=== PATIENT | female | born 1990 | race Caucasian/White ===

== ENCOUNTER 2019-11-09 12:29 | Observation (INO) | payer OTHER, MEDICAID, SELFPAY ==
--- NOTE | 2019-11-09 12:29 | OBADM ---
This patient, Elizabeth Hurtado, admitted to the OB room OB Post 112 for observation. Patient/family oriented to hospital policies and general routines including ID bracelet, bed and alarms, visiting hours, pain management, procedures, bathroom and other care routines, personal items, smoking policy, room service/diet, and visiting hours. Patient/Family are encouraged to report perceived risks to care and to ask questions if they do not understand what they are told or what they should do.
[2019-11-09 13:15] VITALS: BP 136/88; PULSE 87; BMI 39.8
[2019-11-09 13:30] VITALS: BP 130/81; PULSE 85
[2019-11-09 13:45] VITALS: BP 127/94; PULSE 85
[2019-11-09 13:48] LABS: Add Urine Microscopic? YES; Appearance Urine Cloudy (Clear); Bacteria Urine 2+ /hpf; Bilirubin Urine Negative (Negative); Blood Urine Negative (Negative); Color Urine Yellow (Yellow); Glucose Urine UA Negative (Negative); Ketones Urine Trace mg/dL (Negative); Leukocyte Esterase Ur 2+ LEU/UL (NEGATIVE); Mucus Urine Few /lpf; Nitrate Urine Negative (Negative); Protein Urine 1+ mg/dL (Negative); Specific Grav Ur 1.017 (1.001-1.035); Squamous Epithelial Cell Urine Many /hpf (Few); WBC Urine 16-20 /hpf (0-3)
[2019-11-09 14:00] VITALS: BP 123/83; PULSE 85
[2019-11-09 14:15] VITALS: BP 120/79; PULSE 83
--- NOTE | 2019-11-09 17:01 | PC.NURSE ---
SVE DONE BEFORE DISCHARGE WAS 1/THICK/HIGH AT 1500
--- NOTE | 2019-12-08 20:14 | PM.OBTRLD ---
OB - Triage/Final Diagnosis Visit Information Date of evaluation: 11/09/19 Evaluation Laboratory results: Laboratory Tests 11/09/19 13:36 Urine Color Yellow Urine Appearance Cloudy H Urine pH 6.0 Ur Specific [place] 1.017 Urine Protein 1+ H Urine Glucose (UA) Negative Urine Ketones Trace Ur Blood (Man) Negative Urine Nitrate Negative Urine Bilirubin Negative Urine Urobilinogen 2.0 H Ur Leukocyte Esterase 2+ H Urine RBC 11-20 H Urine WBC 16-20 H Ur Squamous Epith Cells Many H Urine Bacteria 2+ H Urine Mucus Few H Final Diagnosis (1) False labor: Code(s): O47.9 - False labor, unspecified Status: Acute
--- NOTE | 2019-12-08 20:54 | PM.OBDSVD ---
DS: Diagnosis Discharge Diagnosis (1) labor: Code(s): O60.00 - labor without delivery, unspecified trimester Status: Acute OB - DS: Summary OB Procedures : PTL Mgmt OB Procedures Intrapartum: Other ( no delivery secondary to treatment of pre term labor) OB Procedures: : None Status at Discharge Functional status at discharge: independent ambulation Time Spent with Patient Time attestation: Total time spent providing and/or coordinating discharge services: Time spent: Less than 30 minutes Discharge Plan Discharge Attending physician on discharge: Gordy Alanis Discharging Clinician: Gordy Alanis Patient Disposition: Home, Self-Care Activity: may shower, as tolerated and pelvic rest Diet: regular Stand Alone Forms: General Discharge Information Follow-up/Referrals: Gordy Alanis MD [Physician] - Discharge Medications: No Action ibuprofen 600 mg Tablet 600 mg PO Q6H PRN (Reason: Cramping) Qty: 60 RF: 0 Date of admission: 11/09/19 12:29 Primary Care Provider: UNKNOWN,DOCTOR Admitting Provider: Gordy Alanis Discharge Date/Time: 11/09/19 15:50 Attending physician on admission: Gordy Alanis
== END 2019-11-09 15:50 | disposition home or self-care (01) ==
PROVIDERS: Admitting Provider Obstetrics & Gynecology; Visit Provider Obstetrics & Gynecology
DX: O60.00 Preterm labor without delivery, unspecified trimester (principal); Z3A.00 Weeks of gestation of pregnancy not specified; Z79.899 Other long term (current) drug therapy
CPT/HCPCS: 81001; 87086; 87088; G0378; G0379

== ENCOUNTER 2019-11-13 11:41 | Inpatient (IN) | payer OTHER, MEDICAID, SELFPAY ==
[2019-11-13] VITALS (16 sets, daily range): BP systolic 125–143; BP diastolic 76–89; PULSE 91–111; RESP 14–16; TEMP 36.8–36.9; O2SAT 100; BMI 39.8
--- NOTE | 2019-11-13 11:41 | OBADM ---
This patient, Elizabeth Hurtado, admitted to the OB room OB Post 113 for observation. Patient/family oriented to hospital policies and general routines including ID bracelet, bed and alarms, visiting hours, pain management, procedures, bathroom and other care routines, personal items, smoking policy, room service/diet, and visiting hours. Patient/Family are encouraged to report perceived risks to care and to ask questions if they do not understand what they are told or what they should do.
[2019-11-13] MEDS: TERBUTALINE SULFATE 1 MG/ML VIAL 0.25 MG SUB-Q (13:40)
[2019-11-13 13:52] LABS: Fetal Fibronectin Negative
[2019-11-13] MEDS: LACTATED RINGERS 1,000 ML 75 ML IV CONT (14:06)
[2019-11-13] MEDS: MAGNESIUM SULF 4 GM/WATER100ML 4 GM/100 ML BAG IVPB (14:07)
[2019-11-13] MEDS: BETAMETHASONE SOD PHOS/ACETATE 30 MG/5 ML VIAL 12 MG IM (14:08)
[2019-11-13] MEDS: MAGNESIUM SULF 20GM/WATER500ML 500 ML 50 MG IV CONT (14:43)
--- NOTE | 2019-11-13 18:10 | PC.NURSE ---
Called Dr. Joe with pt update. Informed of BPs. May D/C home with symptoms to call for. Call with BP >160/100.
--- NOTE | 2019-11-13 18:25 | PC.NURSE ---
Pt given D/C instructions to call for diastolic greater than 160 or systolic greater than 100, or any pre eclampsia symptoms noted on handout. Pt instructed to take Labetalol q 8hrs and times given when to take. Instructed to take Procardia at home in AM. Pt understands and agrees to instructions.
[2019-11-13] MEDS: NORTRIPTYLINE HCL 25 MG CAPSULE 50 MG PO (21:07)
[2019-11-13] MEDS: INSULIN HUMAN NPH (*BKC) 100 UNITS/ML 15 UNITS SUB-Q (21:07)
[2019-11-13] MEDS: NITROFURANTOIN MONOHYD MACROCR 100 MG CAP PO (21:07)
[2019-11-13 21:16] LABS: Glucose Point of Care 239 (65-105)
[2019-11-14] VITALS (8 sets, daily range): BP systolic 124–144; BP diastolic 67–76; PULSE 96–108; RESP 15–18; TEMP 36.8–37.1; O2SAT 96–100
[2019-11-14] MEDS: MAGNESIUM SULF 20GM/WATER500ML 500 ML 50 MG IV CONT ×3 (01:30→20:45)
[2019-11-14] MEDS: LACTATED RINGERS 1,000 ML 75 ML IV CONT ×2 (02:47→15:54)
[2019-11-14] MEDS: INSULIN HUMAN NPH (*BKC) 100 UNITS/ML 13 UNITS SUB-Q (08:01)
--- NOTE | 2019-11-14 08:02 | PM.IMHP ---
H&P: HPI History of Present Illness Chief complaint: contractions Narrative: Elizabeth Hurtado is a 29 year old female , who presented to LD after NST in office showed contractions every 3 minutes.on admission pt found to be dilated 3.5 cm, Dr. Alanis ordered magnesium sulfate and pt started betamethasone for lung development. Currently pt has no complaints except for left pedal edema and mild headache, declines tylenol at this time. Denies contractions and status reassuring. is also complicated by GDM-A2, Circumvallate placenta and marginal cord insertion, and hx of 1 delivery followed by successful vaginal .Curerntly fetus measuring in the 95th percentile weight. Review of Systems Review of Systems: All systems reviewed & are unremarkable except as noted in HPI and below Cardiovascular: Cardiovascular: Reports as per HPI Respiratory: Respiratory: Reports as per HPI and Reports no additional respiratory complaints Gastrointestinal: Gastrointestinal: Reports as per HPI Musculoskeletal: Comments: left pedal edema Neurologic: Reports headache(s) Comments: mild headache Psychiatric: Psychiatric: Reports as per HPI Meds Home Medications and Allergies Home Medications Medication Instructions Recorded Confirmed Type nitrofurantoin monohyd/m-cryst 100 mg PO Q12HR #14 cap 11/09/19 11/13/19 Rx [Macrobid] insulin NPH isoph U-100 human 13 unit SUBCUT QAM 11/13/19 11/13/19 History [Humulin N NPH U-100 Insulin] insulin NPH isoph U-100 human 15 unit SUBCUT HS 11/13/19 11/13/19 History [Humulin N NPH U-100 Insulin] nortriptyline 50 mg PO HS 11/13/19 11/13/19 History Allergies Allergy/AdvReac Type Severity Reaction Status Date / Time No Known Allergies Allergy Mild Unverified 07/21/11 14:19 Vital Signs Vital Signs - 24 hr 11/13/19 12:31 11/13/19 12:45 11/13/19 13:00 Temperature Pulse Rate 99 94 99 Respiratory Rate Blood Pressure 137/81 132/85 133/89 Pulse Oximetry 11/13/19 13:16 11/13/19 13:30 11/13/19 13:46 Temperature Pulse Rate 97 103 H 97 Respiratory Rate 16 Blood Pressure 126/76 140/84 134/85 Pulse Oximetry 11/13/19 14:00 11/13/19 14:16 11/13/19 14:30 Temperature Pulse Rate 101 H 102 H 103 H Respiratory Rate Blood Pressure 140/84 125/80 137/85 Pulse Oximetry 11/13/19 14:46 11/13/19 15:00 11/13/19 16:00 Temperature 36.8 C Pulse Rate 105 H 106 H Respiratory Rate Blood Pressure 139/82 136/88 Pulse Oximetry 11/13/19 18:28 11/13/19 18:52 11/13/19 23:06 Temperature 36.9 C Pulse Rate 111 H 111 H 106 H Respiratory Rate 14 Blood Pressure 141/83 H 141/83 H 143/78 H Pulse Oximetry 100 11/13/19 23:09 11/14/19 02:44 11/14/19 02:50 Temperature 36.8 C 36.9 C Pulse Rate 106 H 101 H 101 H Respiratory Rate 14 15 Blood Pressure 143/79 H 132/73 132/73 Pulse Oximetry 100 100 11/14/19 07:09 Temperature 36.8 C Pulse Rate 96 Respiratory Rate Blood Pressure 135/75 Pulse Oximetry Exam Const: General: no acute distress Eyes: General: appearance normal, both eyes and all related structures Cardio: Rate: regular rate GI: GI Palp: Yes Soft to palpation : External Female Exam: normal external appearance Skin: General skin exam: normal color Neuro: Speech: normal speech Extrem: General: edema (trace right edema, 1+ left pedal edema) Psych: Mental Status: mental status grossly normal Affect: normal affect Assessment and Plan Additional Plan 1. labor -magnesium sulfate x 48 hrs -toco quiet -betamethasone 2. GDM-A2 -monitor blood glucose -insulin as ordered -diabetic diet 3. status reassuring -growth 95% -NST reactive Plan to continue monitoring for labor, magnesium sulfate x48 hours, steroids for lung maturity. plan managed with Dr. Alanis
[2019-11-14 08:07] LABS: Glucose Point of Care 113 (65-105)
[2019-11-14] MEDS: NITROFURANTOIN MONOHYD MACROCR 100 MG CAP PO ×2 (10:01→20:46)
[2019-11-14 11:09] LABS: Glucose Point of Care 108 (65-105)
[2019-11-14] MEDS: BETAMETHASONE SOD PHOS/ACETATE 30 MG/5 ML VIAL 12 MG IM (14:11)
[2019-11-14] MEDS: ACETAMINOPHEN 500 MG TABLET 1000 MG PO (14:44)
[2019-11-14 16:00] LABS: Glucose Point of Care 129 (65-105)
[2019-11-14 20:03] LABS: Glucose Point of Care 179 (65-105)
[2019-11-14] MEDS: INSULIN HUMAN NPH (*BKC) 100 UNITS/ML 15 UNITS SUB-Q (20:48)
[2019-11-15] VITALS (9 sets, daily range): BP systolic 130–147; BP diastolic 57–78; PULSE 83–105; RESP 18; TEMP 36.7–37.2; O2SAT 97–98
[2019-11-15] MEDS: MAGNESIUM SULF 20GM/WATER500ML 500 ML 50 MG IV CONT (07:06)
[2019-11-15] MEDS: LACTATED RINGERS 1,000 ML 75 ML IV CONT (07:07)
--- NOTE | 2019-11-15 08:18 | PM.OBPNVD ---
OB - PN: Subj Subjective Date/time seen: 11/15/19 08:18 no complaints, good movement, no vaginal bleeding, no contractions OB - PN: Obj Data Labs Labs: Laboratory Results - last 24 hr 11/14/19 11/14/19 11/14/19 11:05 15:56 19:53 POC Capillary Glucose 108 129 H 179 H OB - PN A/P Assessment and Plan (1) labor: Code(s): O60.00 - labor without delivery, unspecified trimester Status: Acute Assessment and Plan: stable, to d/c mag today, to start procardia, cont. obs Time Spent With Patient Time: Total time spent is greater than 50% in coordination of care (as documented) at patient's floor/unit and/or counseling patient: Exam Const: General: comfortable, no acute distress and alert Resp: Effort & Inspection: normal respiratory effort Auscultation: no crackles, no rales and no rhonchi Cardio: Rate: regular rate Heart sounds: no click, no murmurs and no rubs GI: Inspection: non-distended GI Palp: No Tenderness to palpation present (GI) Auscultation: normal bowel sounds Other: Incision - CDI Extrem: General: normal to inspection, no pedal edema and no calf tenderness
[2019-11-15] MEDS: NITROFURANTOIN MONOHYD MACROCR 100 MG CAP PO (08:19)
[2019-11-15] MEDS: INSULIN HUMAN NPH (*BKC) 100 UNITS/ML 13 UNITS SUB-Q (08:20)
[2019-11-15 08:24] LABS: Glucose Point of Care 110 (65-105)
[2019-11-15] MEDS: NIFEdipine 30 MG TAB.ER.24 PO (12:22)
[2019-11-15 13:13] LABS: Glucose Point of Care 136 (65-105)
[2019-11-15 19:52] LABS: Glucose Point of Care 149 (65-105)
--- NOTE | 2019-12-10 08:04 | P.DS_ITS ---
DS: Diagnosis Admitting Diagnosis Admitting Diagnosis: labor without delivery, unspecified trimester Discharge Diagnosis (1) contractions: Code(s): O47.9 - False labor, unspecified Status: Acute OB - DS: Summary OB Procedures : PTL Mgmt OB Procedures Intrapartum: Other (no delivery - treament for PTL) OB Procedures: : None Status at Discharge Functional status at discharge: independent ambulation Time Spent with Patient Time attestation: Total time spent providing and/or coordinating discharge services: Discharge Plan Discharge Consulting providers: Nava Lagunas Discharging Clinician: Gordy Alanis Patient Disposition: Home, Self-Care Activity: as tolerated Diet: gestational diabetic Discharge Instructions: OB ANTEPARTUM DISCHARGE INSTRUCTIONS This information is given to help you properly care for yourself at home after your discharge from the hospital. Follow these instructions until your doctor tells you otherwise. DIET: Eat Three Well Balanced Meals per Day Drink at Least Eight 8-Ounce Glasses of Caffeine-Free Beverages Daily Additional Diet Instructions: ACTIVITY: As Tolerated Additional Activity Instructions: RETURN TO LABOR AND DELIVERY IF YOU HAVE: Any Change In Baby's Normal Movement Pattern Any Leakage of Fluid More than 6 Contractions in an Hour Vaginal Bleeding Additional Reasons to Return to Labor and Delivery: Contractions may feel like abdominal pain, tightening, cramping, pressure, back ache, or thigh ache. 24 Hour Urine Collection: Continue 24 hour urine collection until at . When collection is completed, return specimen to the [facility]. See handout for 24 hour urine collection. OTHER INSTRUCTIONS: FOLLOW-UP CARE: Call Office and Make Appointment To see in/on Valuables released to patient or family? N/A Medications from home returned to patient? N/A I Acknowledge Receipt of and Understand the Above Instructions IF YOU HAVE ANY QUESTIONS REGARDING THESE INSTRUCTIONS, PLEASE CALL [phone]. IF PROBLEMS ARISE, CALL YOUR PROVIDER. IF EMERGENCY CARE IS NEEDED, [facility]S EMERGENCY ROOM IS AVAILABLE 24 HOURS A DAY. Stand Alone Forms: General Discharge Information Follow-up/Referrals: Gordy Alanis MD [Physician] - Discharge Medications: No Action ibuprofen 600 mg Tablet 600 mg PO Q6H PRN (Reason: Cramping) Qty: 60 RF: 0 Date of admission: 11/14/19 11:26 Primary Care Provider: UNKNOWN,DOCTOR Admitting Provider: Gordy Alanis Discharge Date/Time: 11/15/19 19:50 Attending physician on admission: Gordy Alanis
== END 2019-11-15 19:50 | disposition home or self-care (01) | DRG 833 ==
LOC: ANHOBPP 11-14 12:03 → ANHLDR 11-15 07:32
PROVIDERS: Advanced Practice Midwife; Admitting Provider Obstetrics & Gynecology; Visit Provider Obstetrics & Gynecology
DX: O60.00 Preterm labor without delivery, unspecified trimester (principal); O24.419 Gestational diabetes mellitus in pregnancy, unspecified control; O69.89X0 Labor and delivery complicated by other cord complications, not applicable or unspecified; O43.113 Circumvallate placenta, third trimester; O34.211 Maternal care for low transverse scar from previous cesarean delivery
CPT/HCPCS: 82731; A9270; J0702; J1815; J3105; J3475; J7120

== ENCOUNTER 2019-11-17 08:53 | Inpatient (IN) | payer OTHER, MEDICAID, SELFPAY ==
[2019-11-17] VITALS (21 sets, daily range): BP systolic 123–179; BP diastolic 72–118; PULSE 64–125; RESP 16–18; TEMP 36.4–37; O2SAT 98–99; BMI 39.7
[2019-11-17] MEDS: LACTATED RINGERS 1,000 ML 999 ML IV CONT (09:15)
[2019-11-17 09:22] LABS: Basophils Percent Auto 0.3 % (0.2-1.2); Eosinophils Percent Auto 0.3 % (0-4.4); Hematocrit 30.9 % (37.0-47.0); Hemoglobin 9.9 g/dL (12.0-15.0); Immature Granulocyte Absolute 0.14 K/mm3 (0.00-0.031); Lymphocytes Absolute Auto 1.97 K/mm3 (0.9-3.2); Lymphocytes Percent Auto 14.1 % (18.3-44.2); Mean Corpuscular Hemoglobin 25.4 pg (26-34); Mean Corpuscular Volume 79.4 fl (80-100); Mean Platelet Volume 12.8 fl (7.4-10.4); Monocytes Absolute Auto 0.9 K/mm3 (0.1-0.6); Monocytes Percent Auto 6.7 % (2.6-8.5); Neutrophils Absolute Auto 10.8 K/mm3 (1.3-6.7); Neutrophils Percent Auto 77.6 % (45.5-73.1); Nucleated Red Blood Cells Absolute Auto 0.1 K/mm3 (0.0-0.012); Platelet Count Result 184 k/mm3 (150-375); Red Blood Count 3.89 M/mm3 (4.2-5.4)
[2019-11-17] MEDS: OXYTOCIN 10 UNITS/ML VIAL 20 UNITS (09:43)
[2019-11-17] MEDS: KETOROLAC 30 MG/ML VIAL (*BKC) (09:45)
--- NOTE | 2019-11-17 10:05 | WPDOBADMIT ---
Obstetrics - Admit Note Admission Note: record reviewed. No pertinent additions to the history and/or any subsequent changes in the physical findings that are not consistent with the expected course of the were found. Additions to the history and/or subsequent changes in the physical findings follow. at 34+2 came in with c/o contractions and leaking green fluid since 829. She was just discharged from hospital 2-3 days ago for labor and received steroids earlier this week. 9 cm dilated. Grossly ruptured membranes with meconium. She has h/o C/S with first, then successful with baby weighing 8# 6oz. She had been advised for repeat C/S but given advanced cervical dilation (anterior lip at 0 station when I arrived) and baby likely baby smaller than the she had, we agreed to proveed with attempt at . She gave verbal consent. h/o GDM on insulin. Blood sugar 95 just before delivery.
--- NOTE | 2019-11-17 10:11 | P.PCNOB_ITS ---
OB - Delivery Note Procedure Delivery date: 11/17/19 Procedure: events: Labor < 37 Weeks, Previous , Gestational Diabetes and Meconium Stained Fluid Intrapartal events: Precipitous Labor < 3 hours and Diabetes Delivery monitor: external FHT and external uterine Route of delivery: Laceration description: Perineal - 2nd Degree Delivery repair: vicryl (3-0) Specimen: Yes Estimated blood loss (mL): 245 Anesthesia type: Local Disposition: floor [place] Baby Date of : 11/17/19 Time of : 09:35 Weeks of gestation at delivery: 34 Infant gender: Male Weight (pounds): 7 Weight (ounces): 12 presentation: vertex position: Right Occiput Anterior Placenta delivery description: Spontaneous cord vessel description: Nuchal Cord score one minute: 6 score five minutes: 9
--- NOTE | 2019-11-17 10:58 | LDADM ---
This patient, Elizabeth Hurtado, was admitted to Labor/Delivery/Recovery 102 on 11/17/19 at 08:53. Plans for labor, pain management and were discussed with patient. Patient/family oriented to hospital policies and general routines including ID bracelet, bed and alarms, visiting hours, pain management, procedures, bathroom and other care routines, personal items, smoking policy, room service/diet and guest tray routines, security routines, and visiting hours. Patient/Family are encouraged to report perceived risks to care and to ask questions if they do not understand what they are told or what they should do. See OBIX for further documentation.
[2019-11-17 11:28] LABS: Glucose Point of Care 95 (65-105)
[2019-11-17 12:02] LABS: Alanine Aminotransferase 15 U/L (4-35); Albumin Level 2.5 g/dL (3.5-5.1); Alkaline Phosphatase 160 U/L (38-126); Aspartate Amino Transferase 32 U/L (14-36); Bilirubin,Total 0.3 mg/dL (0.2-1.3); Blood Urea Nitrogen 11 mg/dL (7-17); Calcium 7.8 mg/dL (8.4-10.2); Carbon Dioxide 18 mmol/L (22-30); Chloride 108 mmol/L (98-107); Estimated CRCL calculation 115 ml/min; Estimated Glomerular Filt Rate > 60; Glucose 109 mg/dL (65-105); Potassium 3.5 mmol/L (3.4-5.0); Sodium 135 mmol/L (137-145)
[2019-11-17] MEDS: BENZOCAINE 20% AER SPR (*SP) 56 GM CAN 1 SPRAY TOPICAL (13:51)
[2019-11-17] MEDS: WITCH HAZEL 40 PADS 1 PAD TOPICAL (13:51)
[2019-11-17] MEDS: DOCUSATE SODIUM 100 MG CAPSULE PO (16:48)
[2019-11-17] MEDS: LANOLIN (LANSINOH) 7.5 GM CREAM 1 APPLIC TOPICAL (16:49)
[2019-11-17] MEDS: POLYSACCHARIDE IRON COMPLEX 150 MG CAPSULE PO (16:49)
[2019-11-17] MEDS: IBUPROFEN 600 MG TABLET PO (16:49)
--- NOTE | 2019-11-17 17:21 | PC.NURSE ---
1332 Pt admitted to room 281 per wheelchair from labor and delivery after spontaneous vaginal delivery of viable male infant at [address] Whitfield. Mother is a ; FOB present. At this time baby is being stabilized for transfer to [facility] because of respiratory problems due to 34 2/7 weeks gestation and meconium delivery. 1600 Admission folder reviewed with mother.
--- NOTE | 2019-11-17 17:24 | PC.NURSE ---
1700 Mother expresses the desire to breast feed her baby; she reports that she did not breast feed her first 2 children. Mother set up with breast pump at this time; shown set up, reviewed care of equipment, and pumping schedule of q3h, during her awake hours. Mother comfortable with 24mm flanges at this time. Reviewed collection and storage of breast milk. She was attentive and voiced understanding of information shared.
[2019-11-18 03:30] VITALS: BP 151/89; PULSE 64
[2019-11-18] MEDS: IBUPROFEN 600 MG TABLET PO ×2 (03:37→10:16)
[2019-11-18 03:49] LABS: Hematocrit 28.7 % (37.0-47.0); Hemoglobin 9.2 g/dL (12.0-15.0)
--- NOTE | 2019-11-18 08:38 | PM.OBPNVD ---
OB - PN: Subj Subjective Date/time seen: 11/18/19 08:38 Patient comments: no complaints, pain well controlled and other (Lochia similar to menses) baby status: doing well (transferred to [place], on ventilator) OB - PN: Obj Data Labs CBC & Chem 7: 11/18/19 03:42 11/17/19 11:37 Labs: Laboratory Results - last 24 hr 11/17/19 11/17/19 11/17/19 09:13 09:13 09:28 WBC 14.0 H RBC 3.89 L Hgb 9.9 L Hct 30.9 L MCV 79.4 L MCH 25.4 L MCHC 32.0 RDW 15.0 H Plt Count 184 MPV 12.8 H Immature Gran % (Auto) 1.0 H Neut % (Auto) 77.6 H Lymph % (Auto) 14.1 L [place] % (Auto) 6.7 Eos % (Auto) 0.3 Baso % (Auto) 0.3 Lymph # (Auto) 1.97 [place] # (Auto) 0.9 H Eos # (Auto) 0.0 Baso # (Auto) 0.0 Abs Immat Gran (auto) 0.14 H Absolute Neuts (auto) 10.8 H Absolute Nucleated RBC 0.1 H Nucleated RBC % 1.0 H Sodium Potassium Chloride Carbon Dioxide BUN Creatinine Estim Creat Clear Calc Estimated GFR Glucose POC Capillary Glucose 95 Uric Acid Calcium Total Bilirubin AST ALT Alkaline Phosphatase Total Protein Albumin Blood Type A Positive Antibody Screen Negative 11/17/19 11/17/19 11/18/19 11:37 11:37 03:42 WBC RBC Hgb 9.2 L Hct 28.7 L MCV MCH MCHC RDW Plt Count MPV Immature Gran % (Auto) Neut % (Auto) Lymph % (Auto) [place] % (Auto) Eos % (Auto) Baso % (Auto) Lymph # (Auto) [place] # (Auto) Eos # (Auto) Baso # (Auto) Abs Immat Gran (auto) Absolute Neuts (auto) Absolute Nucleated RBC Nucleated RBC % Sodium 135 L Potassium 3.5 Chloride 108 H Carbon Dioxide 18 L BUN 11 Creatinine 0.70 Estim Creat Clear Calc 115 Estimated GFR > 60 Glucose 109 H POC Capillary Glucose Uric Acid 7.0 Calcium 7.8 L Total Bilirubin 0.3 AST 32 ALT 15 Alkaline Phosphatase 160 H Total Protein 5.0 L Albumin 2.5 L Blood Type Antibody Screen OB - PN A/P Plan day: 1 (s/p vaginal delivery, doing well) Plan: routine care and discharge home (Follow up in 4 weeks) Time Spent With Patient Time: Total time spent is greater than 50% in coordination of care (as documented) at patient's floor/unit and/or counseling patient: Time with patient: less than 15 minutes Exam Const: General: no acute distress GI: Inspection: other (Fundus firm and nontender at umbilicus) GI Palp: Yes Soft to palpation and No Tenderness to palpation present (GI) Extrem: General: no edema
--- NOTE | 2019-11-18 08:39 | PM.OBDSVD ---
DS: Diagnosis Discharge Diagnosis (1) labor in third trimester with delivery: Code(s): O60.14X0 - labor third trimester with delivery third trimester, not applicable or unspecified Status: Acute (2) Gestational diabetes: Code(s): O24.419 - Gestational diabetes mellitus in , unspecified control Status: Acute OB - DS: Summary OB Procedures : PTL Mgmt OB Procedures Intrapartum: OB Procedures: : None Peripartum Data Delivery Method: Natural Vaginal Laceration description: Perineal - 2nd Degree complications: none Status at Discharge Functional status at discharge: independent ambulation Overall status at discharge: patient is progressing back to baseline Time Spent with Patient Time attestation: Total time spent providing and/or coordinating discharge services: Time spent: Less than 30 minutes DS: Data Data Completed and Pending Labs on day of discharge: Labs from last 24 hours 11/18/19 11/17/19 11/17/19 03:42 11:37 11:37 WBC RBC Hgb 9.2 L Hct 28.7 L MCV MCH MCHC RDW Plt Count MPV Immature Gran % (Auto) Neut % (Auto) Lymph % (Auto) [place] % (Auto) Eos % (Auto) Baso % (Auto) Lymph # (Auto) [place] # (Auto) Eos # (Auto) Baso # (Auto) Abs Immat Gran (auto) Absolute Neuts (auto) Absolute Nucleated RBC Nucleated RBC % Sodium 135 L Potassium 3.5 Chloride 108 H Carbon Dioxide 18 L BUN 11 Creatinine 0.70 Estim Creat Clear Calc 115 Estimated GFR > 60 Glucose 109 H POC Capillary Glucose Uric Acid 7.0 Calcium 7.8 L Total Bilirubin 0.3 AST 32 ALT 15 Alkaline Phosphatase 160 H Total Protein 5.0 L Albumin 2.5 L RPR Blood Type Antibody Screen 11/17/19 11/17/19 11/17/19 09:28 09:13 09:13 WBC RBC Hgb Hct MCV MCH MCHC RDW Plt Count MPV Immature Gran % (Auto) Neut % (Auto) Lymph % (Auto) [place] % (Auto) Eos % (Auto) Baso % (Auto) Lymph # (Auto) [place] # (Auto) Eos # (Auto) Baso # (Auto) Abs Immat Gran (auto) Absolute Neuts (auto) Absolute Nucleated RBC Nucleated RBC % Sodium Potassium Chloride Carbon Dioxide BUN Creatinine Estim Creat Clear Calc Estimated GFR Glucose POC Capillary Glucose 95 Uric Acid Calcium Total Bilirubin AST ALT Alkaline Phosphatase Total Protein Albumin RPR Pending Blood Type A Positive Antibody Screen Negative 11/17/19 09:13 WBC 14.0 H RBC 3.89 L Hgb 9.9 L Hct 30.9 L MCV 79.4 L MCH 25.4 L MCHC 32.0 RDW 15.0 H Plt Count 184 MPV 12.8 H Immature Gran % (Auto) 1.0 H Neut % (Auto) 77.6 H Lymph % (Auto) 14.1 L [place] % (Auto) 6.7 Eos % (Auto) 0.3 Baso % (Auto) 0.3 Lymph # (Auto) 1.97 [place] # (Auto) 0.9 H Eos # (Auto) 0.0 Baso # (Auto) 0.0 Abs Immat Gran (auto) 0.14 H Absolute Neuts (auto) 10.8 H Absolute Nucleated RBC 0.1 H Nucleated RBC % 1.0 H Sodium Potassium Chloride Carbon Dioxide BUN Creatinine Estim Creat Clear Calc Estimated GFR Glucose POC Capillary Glucose Uric Acid Calcium Total Bilirubin AST ALT Alkaline Phosphatase Total Protein Albumin RPR Blood Type Antibody Screen Discharge Plan Discharge Attending physician on discharge: Jenny Whitfield Discharging Clinician: Jenny Whitfield Patient Disposition: Home, Self-Care Activity: may shower and pelvic rest Diet: regular Patient Instructions: Antibiotic Form Stand Alone Forms: General Discharge Information Follow-up/Referrals: Jenny Whitfield MD [Physician] - 4 Weeks Discharge Medications: New ibuprofen 600 mg Tablet 600 mg PO Q6H PRN (Reason: Cramping) Qty: 60 RF: 0 Discontinued Humulin N NPH U-100 Insulin 100 unit/mL suspen
[2019-11-18 09:00] VITALS: PULSE 64; RESP 16; O2SAT 99
[2019-11-18 10:00] VITALS: BP 137/80; PULSE 67; RESP 14; TEMP 36.6; O2SAT 100
[2019-11-18] MEDS: MULTIVIT/MIN/PREN/FOL AC/IRON TABLET 1 TAB PO (10:10)
[2019-11-18] MEDS: POLYSACCHARIDE IRON COMPLEX 150 MG CAPSULE PO (10:10)
[2019-11-18] MEDS: DOCUSATE SODIUM 100 MG CAPSULE PO (10:10)
[2019-11-19 10:31] LABS: Rapid Plasma Reagin Non-Reactive (NonReactive)
[2019-11-19 15:20] VITALS: BP 121/67; PULSE 73; RESP 18; TEMP 36.6
== END 2019-11-18 11:07 | disposition home or self-care (01) | DRG 805 ==
LOC: ANHLDR 14:44 → ANHOB2 15:15
PROVIDERS: Admitting Provider Obstetrics & Gynecology; Visit Provider Obstetrics & Gynecology
DX: O24.424 Gestational diabetes mellitus in childbirth, insulin controlled (principal); O60.14X0 Preterm labor third trimester with preterm delivery third trimester, not applicable or unspecified; Z37.0 Single live birth; Z3A.34 34 weeks gestation of pregnancy; O77.0 Labor and delivery complicated by meconium in amniotic fluid; O62.3 Precipitate labor; O70.1 Second degree perineal laceration during delivery; O34.219 Maternal care for unspecified type scar from previous cesarean delivery
CPT/HCPCS: 36415; 80053; 84550; 85014; 85018; 85025; 86592; 86850; 86900; 86901; 88307; A9270; J1885; J2590; J7120

== ENCOUNTER 2019-11-19 15:39 | Outpatient (CLI) | payer OTHER, MEDICAID, SELFPAY ==
[2019-11-19 16:08] LABS: Basophils Percent Auto 0.3 % (0.2-1.2); Eosinophils Absolute Auto 0.3 K/mm3 (0-0.3); Eosinophils Percent Auto 2.9 % (0-4.4); Hematocrit 28.5 % (37.0-47.0); Immature Granulocyte Absolute 0.07 K/mm3 (0.00-0.031); Immature Granulocyte Percent A 0.7 % (0-0.5); Lymphocytes Absolute Auto 2.65 K/mm3 (0.9-3.2); Lymphocytes Percent Auto 25.9 % (18.3-44.2); Mean Corpuscular HGB Conc 31.6 g/dl (32-36); Mean Corpuscular Hemoglobin 25.4 pg (26-34); Mean Corpuscular Volume 80.5 fl (80-100); Monocytes Absolute Auto 0.4 K/mm3 (0.1-0.6); Monocytes Percent Auto 4.3 % (2.6-8.5); Neutrophils Absolute Auto 6.8 K/mm3 (1.3-6.7); Neutrophils Percent Auto 65.9 % (45.5-73.1); Nucleated Red Blood Cells Perc 0.3 % (0.0-0.2); Platelet Count Result 175 k/mm3 (150-375); Red Blood Count 3.54 M/mm3 (4.2-5.4); Red Cell Distribution Width 15.2 % (11.5-14.5); White Blood Count 10.3 K/mm3 (4.5-10.0)
[2019-11-19 16:20] LABS: Alanine Aminotransferase 12 U/L (4-35); Albumin Level 2.5 g/dL (3.5-5.1); Alkaline Phosphatase 114 U/L (38-126); Aspartate Amino Transferase 20 U/L (14-36); Bilirubin,Total 0.1 mg/dL (0.2-1.3); Blood Urea Nitrogen 7 mg/dL (7-17); Calcium 7.6 mg/dL (8.4-10.2); Carbon Dioxide 24 mmol/L (22-30); Chloride 104 mmol/L (98-107); Estimated Glomerular Filt Rate > 60; Glucose 170 mg/dL (65-105); Potassium 3.7 mmol/L (3.4-5.0); Sodium 135 mmol/L (137-145); Uric Acid 5.6 mg/dL (2.5-7.5)
--- NOTE | 2019-11-19 16:39 | PC.NURSE ---
Katrin Rizzo notified of Bp's and lab results ok to dc home and return if symptoms return.
== END 2019-11-19 15:40 | disposition home or self-care (01) ==
LOC: ANHOBOP 15:44
PROVIDERS: Advanced Practice Midwife; Visit Provider Obstetrics & Gynecology
DX: O13.9 Gestational [pregnancy-induced] hypertension without significant proteinuria, unspecified trimester (principal)
CPT/HCPCS: 36415; 80053; 84550; 85025

== ENCOUNTER 2020-03-13 17:52 | Emergency (ER) | payer OTHER, MEDICAID, SELFPAY ==
--- NOTE | ~2020-03-13 | XR_ITS ---
EXAMINATION: XR chest 2V DATE: 03/13/2020 18:45 INDICATION: Shortness of breath TECHNIQUE: PA and lateral views of the chest are obtained. COMPARISON: None available FINDINGS: The lungs are free of acute opacities. There is no pleural effusion or pneumothorax. The ca rdiomediastinal silhouette is normal. The visualized bones and soft tissues are unremarkable. IMPRESSION: 1. No acute cardiopulmonary abnormality. Reviewed, dictated and finalized at location A.
[2020-03-13 17:58] VITALS: BP 160/89; PULSE 91; RESP 20; TEMP 37.1; O2SAT 98
--- NOTE | 2020-03-13 18:25 | ECG_ITS ---
Measurements Intervals [place] Rate: 92 P: 37 KS: 148 QRS: 17 QRSD: 86 T: -17 QT: 366 QTc: 453 Interpretive Statements SINUS RHYTHM INCOMPLETE RIGHT BUNDLE BRANCH BLOCK MINIMAL Q WAVES- ANTEROLAT/INF LEADS NONSPECIFIC T-WAVE ABNORMALITY- INFERIOR LEADS BORDERLINE ECG Electronically Signed On 03-13-2020 20:15:58 CDT by Adalid Vera D.O.
[2020-03-13] MEDS: MAG HYDROX/ALUMINUM HYD/SIMETH 30 ML, PHENobarb/HYOSCY/ATROPINE/SCOP 32.4 MG, LIDOCAINE... PO (18:29)
--- NOTE | 2020-03-13 18:35 | ED.ABDPAIN ---
HPI - Abdominal Pain General Chief Complaint: Abdominal Pain Stated Complaint: sent from doctor for upper abd pain Source: patient Mode of arrival: ambulatory Limitations: no limitations History of Present Illness HPI narrative: This is a 30-year-old female with some that presents with some abdominal pain located in the epigastric area with some aching/burning sensation that occurs at night when she lays down, patient states that she has a meal prior to bedtime, with no radiation of her pain no lower abdominal discomfort no flank pain no dysuria, patient states that with this discomfort she does have some dyspnea, there is no cough there is no chest pain or pressure there is no audible wheezing, patient does not have a history of asthma or COPD currently no nausea vomiting no diarrhea constipation. The patient states that the pain and burning is worse after she eats and late at night when she lays down flat to go to sleep. Her primary care physician gave her NSAIDs some and this exacerbated her situation and her symptoms. MD elicited complaint: abdominal pain Pertinent past history: none Onset (ago): week(s) Pain Consistency: intermittent Location: epigastric Severity: moderate Quality: aching and burning Radiation: epigastric Migration to: no migration Exacerbating factors: eating Relieving factors: nothing Associated symptoms: dysuria Related Data Home Medications Medication Instructions Recorded Confirmed meloxicam 15 mg PO DAILY 03/13/20 03/13/20 nortriptyline 50 mg PO HS 03/13/20 03/13/20 quetiapine 50 mg PO DAILY 03/13/20 03/13/20 Allergies Allergy/AdvReac Type Severity Reaction Status Date / Time No Known Allergies Allergy Mild Unverified 03/13/20 18:12 Review of Systems Review of Systems: All systems reviewed & are unremarkable except as noted in HPI and below PMFSH Past Medical History Medical History Gestational diabetes labor in third trimester with delivery Social History Social History Smoking status: Former smoker Tobacco type: cigarettes Substance use: former Gender identity (if verbalized by the patient): Female Spiritual care concerns: No Exam Const: General: no acute distress and alert Orientation/consciousness: patient oriented x3 HENMT: Head: normal to inspection Eyes: Conjunctivae: conjunctivae normal Pupils: Equal, round and reactive pupils present EOM: EOMs intact bilaterally Neck: Neck: normal visual inspection, no lymphadenopathy and no meningeal signs Chest: Chest palpation & inspection: normal inspection of the chest Resp: Effort & Inspection: normal respiratory effort Auscultation: clear to auscultation bilaterally Cardio: Rate: regular rate Rhythm: regular rhythm GI: GI Palp: Yes Soft to palpation Percussion: Yes normal to percussion Other: Epigastric tenderness with palpation : General: Yes no CVA tenderness Back/Spine/Pelvis: Back: no CVA tenderness Skin: General skin exam: normal color Rashes: no rashes Neuro: General: patient oriented x3, moves all extremities and no meningeal signs Extrem: General: normal to inspection and no pedal edema Psych: Mental Status: mental status grossly normal Course Course Emergency Course: after reassessment of her epigastric discomfort patient states that she feels may be mildly improved if that. Suggested that we give her p.o. Protonix prior to discharge and Protonix prescription and to not take NSAIDs, and to not have anything to eat about 3 hours prior to lying down to go to sleep, patient voiced her understanding. Vital Signs Vital signs: Vital Signs Temperature 37.1 C 03/13/20 17:58 Pulse Rate 91 03/13/20 17:58 Respiratory Rate 20 03/13/20 17:58 Blood Pressure 160/89 H 03/13/20 17:58 Pulse Oximetry 98 03/13/20 17:58 Temperature 37.1 C 03/13/20
[2020-03-13 19:09] VITALS: BP 149/81; PULSE 104; RESP 20; O2SAT 95
[2020-03-13] MEDS: PANTOPRAZOLE 40 MG TABLET PO (19:09)
== END 2020-03-13 19:23 | disposition home or self-care (01) ==
PROVIDERS: Emergency Provider Emergency Medicine; PCP Family Medicine
DX: K21.9 Gastro-esophageal reflux disease without esophagitis (principal)
CPT/HCPCS: 71046; 93005; 99283; 99284; A9270

== ENCOUNTER 2022-09-10 10:51 | Outpatient (CLI) | payer OTHER, MEDICAID, SELFPAY ==
[2022-09-10 11:40] LABS: Add Urine Microscopic? YES; Appearance Urine Clear (Clear); Bilirubin Urine Negative (Negative); Blood Urine 1+ (Negative); Color Urine Light Yellow (Yellow); Glucose Urine UA Negative (Negative); Ketones Urine Negative (Negative); Leukocyte Esterase Ur Negative (Negative); Nitrate Urine Negative (Negative); Protein Urine Negative (Negative); Specific Grav Ur >= 1.030 (1.010-1.020); Urobilinogen Urine 0.2 mg/dL (0.2-1.0)
[2022-09-10 11:49] LABS: Bacteria Urine 2+ /hpf; RBC Urine 0-2 /hpf (0-2); Squamous Epithelial Cell Urine Moderate /hpf (Few)
== END 2022-09-10 10:52 | disposition home or self-care (01) ==
LOC: CHSLAB 10:54
PROVIDERS: PCP Family Medicine; Visit Provider Family Medicine
DX: R31.21 Asymptomatic microscopic hematuria (principal)
CPT/HCPCS: 81001

== ENCOUNTER 2022-09-15 10:34 | Outpatient (CLI) | payer OTHER, MEDICAID, SELFPAY ==
--- NOTE | ~2022-09-15 | US_ITS ---
Abdominal Sonogram: Real-time sonographic imaging of the abdomen was performed. Clinical History: Abdominal pain Findings: The liver appears normal with no evidence of mass lesion or bile duct dilatation. Main por roslyn vein demonstrates normal direction of flow. The spleen is normal in size without evidence of foca l lesion. The gallbladder is well distended, and contains numerous layering small gallstones. No def inite gallbladder wall thickening. The common bile duct measures 3 mm. The visualized pancreas, aort a, and IVC are unremarkable. The right kidney measures 9.4 cm in length and the left kidney measures 9.7 cm. There is no hydronephrosis or renal calculus. Impression: Cholelithiasis. Reviewed, dictated and finalized at location [facility]. [employer]ION OFFICER Impression: Cholelithiasis.
== END 2022-09-15 10:35 | disposition home or self-care (01) ==
LOC: CHSIMG 10:36
PROVIDERS: PCP Family Medicine; Visit Provider Family Medicine
DX: R10.10 Upper abdominal pain, unspecified (principal); K80.50 Calculus of bile duct without cholangitis or cholecystitis without obstruction
CPT/HCPCS: 76700

== ENCOUNTER 2023-02-23 13:41 | Emergency (ER) | payer OTHER, MEDICAID, SELFPAY ==
--- NOTE | ~2023-02-23 | CT_ITS ---
EXAMINATION: CT abdomen pelvis w con DATE: 02/23/2023 16:18 INDICATION: Upper right abdominal pain TECHNIQUE: Computed tomography (CT) of the abdomen and pelvis was performed with 100 CC Omnipaque 350 intravenous contrast. Automated exposure control and iterative reconstruction technique were employe d. Exam dose: 1099.49 mGy-cm total exam DLP. COMPARISON: 09/15/2022 complete abdominal ultrasound examination (cholelithiasis) FINDINGS: There is a 1 cm mass of the upper inner quadrant of the left breast. Consider diagnostic ma mmogram and/or breast ultrasound examination. There is mild thickening/edema of the gallbladder wall; consider acute cholecystitis, particularly gi karen the history of upper abdominal pain. Gallbladder ultrasound may be more instructive. Cholelithias is was reported on 09/15/2022 examination. THE LIVER, SPLEEN, PANCREAS, AND ADRENAL GLANDS AND KIDNEYS APPEAR NORMAL. NO BILE DUCT OR PANCREATIC DUCT DILATATION. NO URINARY TRACT CALCULUS OR HYDROURETERONEPHROSIS. THE URINARY BLADDER, UTERUS AND ADNEXAL AREAS ARE UNREMARKABLE EXCEPT FOR 2.2 CM LEFT OVARIAN CYST. TRACE LIKELY PHYSIOLOGIC FLUID IN THE POSTERIOR CUL-DE-SAC. NORMAL CALIBER OF THE ABDOMINAL AORTA. NO INTRAPERITONEAL OR RETROPERITONEAL OR PELVIC MASS LESION OR ADENOPATHY OR ASCITES. Normal appendix. No bowel obstruction, bowel wall thickening, pneumatosis or intraperitoneal free air . Small fat-containing umbilical hernia. No suspicious osteolytic or osteoblastic lesions are noted. IMPRESSION: 1 cm left breast mass; consider diagnostic mammogram and/or breast ultrasound. Mild thickening/edema of gallbladder wall suggesting acute cholecystitis 2.2 cm left ovarian cyst Normal appendix Reviewed, dictated and finalized at [facility]. Reviewed, dictated and finalized at location A.
[2023-02-23 13:41] VITALS: BP 134/83; PULSE 88; RESP 14; TEMP 36.3; O2SAT 98
--- NOTE | 2023-02-23 13:56 | ED.ABDPAIN ---
HPI - Abdominal Pain General Chief Complaint: Abdominal Pain Stated Complaint: abdominal pain; nausea and vomiting Time Seen by Provider: 02/23/23 13:55 Source: patient Mode of arrival: ambulatory Limitations: no limitations History of Present Illness HPI narrative: 33-year-old female with a history of gastric reflux, gallstones, arthritis, anxiety/panic attacks presents to the ER with a 10 hour history of -- epigastric pain. The pain is continuous without any exacerbating or relieving factors. The patient has epigastric pain once a month with spontaneous resolution. -- Nausea with vomiting. -- No fever or chills MD elicited complaint: abdominal pain Pertinent past history: other ( gastric reflux, gallstones) Onset (ago): hour(s) ( started 10 hours ago) Pain Consistency: constant Location: epigastric Severity: moderate Quality: cramping Radiation: none Migration to: no migration Exacerbating factors: nothing Relieving factors: nothing Associated symptoms: nausea and vomiting Treatments prior to arrival: NSAIDs Related Data Home Medications Medication Instructions Recorded Confirmed nortriptyline 50 mg capsule 50 mg PO HS 03/13/20 03/13/20 clonazepam 0.5 mg tablet 0.5 mg PO DAILY 02/23/23 02/23/23 Allergies Allergy/AdvReac Type Severity Reaction Status Date / Time No Known Allergies Allergy Mild Verified 02/23/23 14:03 Review of Systems Review of Systems: All systems reviewed & are unremarkable except as noted in HPI and below Constitutional: Constitutional: Reports as per HPI and Reports no additional constitutional complaints Eyes: Eyes: Reports as per HPI and Reports no additional eye complaints ENT: Reports system reviewed and no additional complaints, except as documented and Reports as per HPI Cardiovascular: Cardiovascular: Reports as per HPI and Reports no additional cardiovascular complaints Respiratory: Respiratory: Reports as per HPI and Reports no additional respiratory complaints Gastrointestinal: Gastrointestinal: Reports as per HPI, Reports no additional gastrointestinal complaints, Reports nausea and Reports vomiting Comments: epigastric pain Genitourinary: Comments: A1 Musculoskeletal: Musculoskeletal: Reports no additional musculoskeletal complaints Integumentary/Breasts: Skin/Breast: Reports system reviewed and no additional complaints, except as docu and Reports as per HPI Neurologic: Reports system reviewed and no additional complaints, except as documented and Reports as per HPI Psychiatric: Psychiatric: Reports no additional psychiatric complaints and Reports as per HPI Endocrine: Endocrine: Reports no additional endocrine complaints and Reports as per HPI Hematologic/Lymphatic: Hematologic/Lymphatic: Reports no additional hematologic/lymphatic complaints and Reports as per HPI Allergic/Immunologic: Allergic/Immunologic: Reports no additional allergic/immunologic complaints and Reports as per HPI PMFSH Past Medical History Medical History (Updated 02/23/23 @ 18:43 by Mikey Fuchs MD) Gestational diabetes labor in third trimester with delivery Social History Social History Smoking status: Former smoker Tobacco type: cigarettes Substance use: former Gender identity (if verbalized by the patient): Female Spiritual care concerns: No Exam Const: General: no acute distress Nutritional Appearance: well nourished Orientation/consciousness: patient oriented x3 Limitations: no limitations HENMT: Head: normal to inspection Ears: external ears normal Face/Nose/Sinus: Normal external nose present Face and sinus: normal facial exam Mouth: Yes Normal oral and palatal mucosa present Throat: posterior oropharynx normal Eyes: Conjunctivae: conjunctivae normal Pupils: Equal, round and reactive pupils present EOM: EOMs intact bilaterally Direct Ophthalmoscopy: no photop
[2023-02-23 14:20] LABS: Appearance Urine Slightly Cloudy (Clear); Bilirubin Urine 1+ (Negative); Blood Urine Negative (Negative); Color Urine Orange (Yellow); Glucose Urine UA Negative (Negative); Ketones Urine Negative (Negative); Leukocyte Esterase Ur 2+ LEU/UL (Negative); Nitrate Urine Negative (Negative); Protein Urine Trace (Negative); Specific Grav Ur 1.025 (1.010-1.020)
[2023-02-23 14:25] LABS: Add Urine Microscopic? YES; Bacteria Urine 2+ /hpf; RBC Urine None seen /hpf (0-2); Squamous Epithelial Cell Urine Few /hpf (Few)
[2023-02-23 14:28] LABS: Basophils Absolute Auto 0.05 K/mm3 (0.00-0.10); Basophils Percent Auto 0.5 % (0.0-1.0); Eosinophils Absolute Auto 0.28 K/mm3 (0.02-0.50); Eosinophils Percent Auto 2.8 % (1.0-6.0); Hematocrit 37.4 % (35.0-49.0); Hemoglobin 12.4 g/dL (12.0-15.0); Immature Granulocyte Absolute 0.02 K/mm3 (0.00-0.00); Immature Granulocyte Percent A 0.2 % (0.0-0.0); Lymphocytes Absolute Auto 2.16 K/mm3 (1.10-4.50); Lymphocytes Percent Auto 21.5 % (18.0-42.0); Mean Corpuscular HGB Conc 33.2 g/dL (32.0-36.0); Mean Corpuscular Hemoglobin 27.1 pg (27.0-31.0); Mean Corpuscular Volume 81.8 fL (78.0-102.0); Mean Platelet Volume 11.2 fl (9.2-11.8); Monocytes Absolute Auto 0.39 K/mm3 (0.10-0.90); Monocytes Percent Auto 3.9 % (2.0-11.0); Neutrophils Absolute Auto 7.2 K/mm3 (1.7-7.2); Neutrophils Percent Auto 71.1 % (50.0-70.0); Platelet Count Result 241 K/mm3 (150-420); Red Blood Count 4.57 M/mm3 (4.20-5.40); Red Cell Distribution Width 14.1 % (11.6-14.4); White Blood Count 10.1 K/mm3 (4.8-10.8)
[2023-02-23] MEDS: LACTATED RINGERS 1,000 ML 999 ML IV CONT (14:33)
[2023-02-23] MEDS: ONDANSETRON INJ 4 MG/2 ML VIAL IV PUSH (14:34)
[2023-02-23] MEDS: HYDROmorphone HCL INJ (*CRX) 2 MG/ML VIAL 0.5 MG IV PUSH ×2 (14:35→19:30)
[2023-02-23 14:41] LABS: INR 0.9; Prothrombin Time 10.3 Seconds (9.50-12.10)
[2023-02-23 14:48] LABS: Alanine Aminotransferase 328 U/L (14-59); Albumin Level 3.7 g/dL (3.4-5.0); Alkaline Phosphatase 132 U/L (46-116); Anion Gap 10 mmol/L (8-16); Aspartate Amino Transferase 433 U/L (15-37); Bilirubin,Total 1.2 mg/dL (0.00-1.00); Blood Urea Nitrogen 13 mg/dL (7-18); Calcium 8.7 mg/dL (8.5-10.1); Carbon Dioxide 26 mmol/L (21-32); Chloride 104 mmol/L (98-108); Estimated CRCL calculation 90 ml/min; Estimated Glomerular Filt Rate > 60; Glucose 106 mg/dL (70-99); Lactic Acid Reflex 0.8 mmol/L (0.4-2.0); Osmolality Calculated 290 mOsm/kg (285-295); Potassium 4.1 mmol/L (3.5-5.1); Sodium 140 mmol/L (136-145); Total Protein 7.7 g/dL (6.4-8.2); Troponin I < 4.0 ng/L (0.00-60.4)
[2023-02-23 14:55] VITALS: BP 123/60; PULSE 65; RESP 14; TEMP 36.3; O2SAT 98
[2023-02-23 14:58] LABS: Lipase 281 U/L (16-77)
[2023-02-23 16:01] LABS: Pregnancy On Board Control Positive; Urine Pregnancy Test Negative
[2023-02-23 17:13] VITALS: BP 118/79; PULSE 71; RESP 14; O2SAT 100
[2023-02-23 19:06] VITALS: BP 118/66; PULSE 70; RESP 16; TEMP 36.3; O2SAT 100
[2023-02-23] MEDS: LACTATED RINGERS 1,000 ML 100 ML IV CONT (19:30)
--- NOTE | 2023-03-02 14:16 | PC.NURSE ---
03/02/23 URINE CULTURE FINAL NO GROWTH
== END 2023-02-23 19:39 | disposition short-term general hospital (02) ==
PROVIDERS: Emergency Provider Internal Medicine Critical Care Medicine; PCP Family Medicine
DX: K81.9 Cholecystitis, unspecified (principal); Z87.891 Personal history of nicotine dependence
CPT/HCPCS: 36415; 74177; 80053; 81001; 81025; 83605; 83690; 84484; 85025; 85610; 87086; 87088; 96361; 96365; 96375; 96376; 99285; J1170; J2405; J2543; J7120; Q9967

== ENCOUNTER 2024-01-29 08:04 | Inpatient (IN) | payer OTHER, MEDICAID, SELFPAY ==
[2024-01-29] VITALS (12 sets, daily range): BP systolic 102–122; BP diastolic 60–89; PULSE 70–83; RESP 13–23; TEMP 36.4–36.6; O2SAT 97–100; BMI 34.5
--- NOTE | ~2024-01-29 | US_ITS ---
US right upper quadrant INDICATION: Gallstones. Abdomen pain. PROCEDURE: Realtime right upper abdominal ultrasound. COMPARISON: No prior studies for comparison. FINDINGS: The pancreas is normal without focal mass or pancreatic ductal dilation. Liver echotexture is increased, consistent with fatty infiltration. There are gallstones. The gallbladder is normal without stones, gallbladder wall thickening or pericholecystic fluid. Comm on bile duct measures 4 mm. No sonographic Jackson's sign. IMPRESSION: 1: Cholelithiasis. 2: Fatty infiltration of the liver. Reviewed, dictated and finalized at location B.
[2024-01-29 08:34] LABS: Basophils Percent Auto 0.3 % (0.2-1.2); Eosinophils Absolute Auto 0.4 K/mm3 (0-0.3); Eosinophils Percent Auto 3.6 % (0-4.4); Hematocrit 37.3 % (37.0-47.0); Hemoglobin 12.5 g/dL (12.0-15.0); Immature Granulocyte Absolute 0.02 K/mm3 (0.00-0.031); Immature Granulocyte Percent A 0.2 % (0-0.5); Lymphocytes Absolute Auto 2.35 K/mm3 (0.9-3.2); Lymphocytes Percent Auto 23.4 % (18.3-44.2); Mean Corpuscular HGB Conc 33.5 g/dl (32-36); Mean Corpuscular Volume 83.4 fl (80-100); Mean Platelet Volume 11.3 fl (7.4-10.4); Monocytes Absolute Auto 0.4 K/mm3 (0.1-0.6); Monocytes Percent Auto 4.3 % (2.6-8.5); Neutrophils Absolute Auto 6.9 K/mm3 (1.3-6.7); Neutrophils Percent Auto 68.2 % (45.5-73.1); Platelet Count Result 240 k/mm3 (150-375); Red Blood Count 4.47 M/mm3 (4.2-5.4); Red Cell Distribution Width 13.1 % (11.5-14.5); White Blood Count 10.1 K/mm3 (4.5-10.0)
[2024-01-29 08:48] LABS: Alanine Aminotransferase 248 U/L (6-35); Albumin Level 4.2 g/dL (3.5-5.1); Alkaline Phosphatase 134 U/L (38-126); Anion Gap 8 mmol/L (4-12); Aspartate Amino Transferase 332 U/L (14-36); Bilirubin,Total 2.5 mg/dL (0.2-1.3); Blood Urea Nitrogen 9 mg/dL (7-17); Calcium 8.4 mg/dL (8.4-10.2); Carbon Dioxide 21 mmol/L (22-30); Chloride 108 mmol/L (98-107); Estimated CRCL calculation 102 ml/min; Estimated Glomerular Filt Rate > 60; Glucose 134 mg/dL (65-110); Lipase 339 U/L (23-300); Potassium 3.8 mmol/L (3.4-5.0); Sodium 137 mmol/L (137-145)
[2024-01-29 08:49] LABS: Appearance Urine Cloudy (Clear); Bacteria Urine 1+ /hpf; Bilirubin Urine 1+ (Negative); Blood Urine Negative (Negative); Color Urine Dark Yellow (Yellow); Glucose Urine UA Negative (Negative); Ketones Urine Negative (Negative); Leukocyte Esterase Ur 1+ LEU/UL (Negative); Nitrate Urine Negative (Negative); Non Pathogenic Casts 0-2; Protein Urine Negative (Negative); RBC Urine 0-2 /hpf (0-2); Specific Grav Ur 1.019 (1.001-1.035); Squamous Epithelial Cell Urine Moderate /hpf (Few); Urobilinogen Urine 0.2 mg/dL (<2.0); WBC Urine 21-50 /hpf (0-3); pH Urine 5.5 (5.0-9.0)
[2024-01-29 08:54] LABS: Add Urine Microscopic? YES
--- NOTE | 2024-01-29 08:58 | ED.GENADULT ---
HPI - General Adult General Chief complaint: Abdominal Pain Stated complaint: I'm having an active gallbladder attack Time Seen by Provider: 01/29/24 08:27 History of Present Illness HPI narrative: Patient is a 33-year-old female who presents ER with concerns gallbladder attack. Has known gallstones and was diagnosed several years ago. She reports she does a gallbladder/ liver cleanse monthly to help with her discomfort because she usually has pain for 1 week a month. Pain became much more constant over the last 48 hours. Worse with eating and drinking. Radiates into her back and shoulder blade on the right side. She has nausea. No diarrhea. No urinary symptoms. No alleviating factors at this time. Related Data Home Medications Medication Instructions Recorded Confirmed nortriptyline 50 mg capsule 50 mg PO HS 03/13/20 01/29/24 clonazepam 0.5 mg tablet 0.5 mg PO DAILY PRN Anxiety 02/23/23 01/29/24 Allergies Allergy/AdvReac Type Severity Reaction Status Date / Time No Known Allergies Allergy Mild Verified 02/23/23 14:03 Review of Systems Review of Systems: All systems reviewed & are unremarkable except as noted in HPI and below Constitutional: Constitutional: Reports no additional constitutional complaints ENT: Reports system reviewed and no additional complaints, except as documented Cardiovascular: Cardiovascular: Reports no additional cardiovascular complaints Respiratory: Respiratory: Reports no additional respiratory complaints Gastrointestinal: Gastrointestinal: Reports abdominal pain, Denies diarrhea, Reports nausea and Denies vomiting Genitourinary: Genitourinary: Reports no additional female genitourinary complaints [facility] Past Medical History Medical History (Updated 01/29/24 @ 17:46 by Drew Sebastian MD) Cholelithiasis Depression with anxiety Gestational diabetes Migraine headache Nausea RUQ pain Surgical History Surgical History (Updated 01/29/24 @ 13:58 by Lilian Rodgers PA-C) History of section Family History Family History (Updated 01/29/24 @ 13:58 by Lilian Rodgers PA-C) Other Family history non-contributory Social History Social History (Updated 01/29/24 @ 13:58 by Lilian Rodgers PA-C) Social History: Surrogate medical decision maker: Rodger Hurtado, spouse. Code status: Full code. Smoking status: Former smoker Alcohol intake: never Substance use: former Substance use type: does not use Do You Feel Safe in your Home?: Yes Lack of Transportation: No Lack of Food: Never True Current Housing: I Have Housing Concerned About Future Housing: No Difficulty Paying Gas/Electric Bills: No Difficulty Paying for Meds: No Currently Unemployed: No Education: Associate Degree Difficulty w/ Childcare or Family Care: No Spiritual care concerns: No Exam Narrative: GENERAL: Well-appearing, obese, and in no acute distress. HEAD: Normocephalic, atraumatic. ENT: Mucous membranes moist. NECK: Supple. CHEST: Clear to auscultation. No respiratory distress. HEART: Regular rate and rhythm. Normal peripheral pulses. ABDOMEN: Soft, mild tenderness in the right upper quadrant and epigastrium, nondistended. EXTREMITIES: Normal range of motion. No edema. SKIN: Warm, dry, no rash. NEURO: Alert and oriented x3. PSYCH: Normal mood and affect. Course Course Emergency Course: Patient resting comfortably and feels improved after morphine. Discussed with General surgery and recommends admission for repeat lab work given significant transaminitis and cholelithiasis. GI also consulted. Patient accepted by hospitalist service. Patient was also placed on IV antibiotics. Vital Signs Vital signs: Vital Signs Temperature 97.6 F 01/29/24 08:17 Pulse Rate 77 01/29/24 08:17 Respiratory Rate 16 01/29/24 08:17 Blood Pressure 118/77 01/29/24 08:17 Pulse Oximetry 99 01/29/24 08:17 Oxygen Delivery Room
[2024-01-29] MEDS: ONDANSETRON INJ 4 MG/2 ML VIAL IV PUSH ×2 (09:14→15:29)
[2024-01-29] MEDS: MORPHINE SULFATE (*CRX) 4 MG/ML INJ IV PUSH ×2 (09:14→14:14)
[2024-01-29] MEDS: SODIUM CHLORIDE 0.9% IV 1,000 ML 125 ML IV CONT ×2 (12:31→21:26)
[2024-01-29] MEDS: metroNIDAZOLE 500 MG/ISO 100ML 500 MG/100 ML BAG 100 MG IVPB ×2 (13:16→21:28)
--- NOTE | 2024-01-29 13:27 | PM.CNGS ---
Assessment and Plan Assessment and plan (1) Cholecystitis: Code(s): K81.9 - Cholecystitis, unspecified Status: Acute Assessment and Plan: the patient will be admitted to the medical service, IV antibiotics, low-fat diet, serial exams and labs, discussed with patient will need interval cholecystectomy (2) Choledocholithiasis: Code(s): K80.50 - Calculus of bile duct without cholangitis or cholecystitis without obstruction Status: Acute Assessment and Plan: labs suggestive of choledocholithiasis, exam completely benign, we will recheck labs in the morning and if still elevated will likely need MRCP, await GI input History of Present Illness Consult details Consult date: 01/29/24 Reason for consult: abdominal pain Requesting physician: Steph Varner MD Narrative: The patient is a 33-year-old female presenting to the emergency department complaining of severe epigastric, right upper quadrant abdominal pain. The patient reports that the pain has been unrelenting for the last 2 days. The patient reports associated anorexia, nausea, bloating. The patient reports that she has had intermittent symptoms for years and has known cholelithiasis. The patient reports that this is her most severe episode. Workup, including imaging, is significant for cholecystitis, possible choledocholithiasis. Review of Systems Review of Systems: All systems reviewed & are unremarkable except as noted in HPI and below PMFSH Past Medical History Medical History Cholelithiasis Gestational diabetes labor in third trimester with delivery Surgical History Surgical History No history of previous surgery Social History Social History Smoking status: Former smoker Tobacco type: cigarettes Substance use: former Gender identity (if verbalized by the patient): Female Spiritual care concerns: No Meds Home Medications and Allergies Home Medications Medication Instructions Recorded Confirmed Type nortriptyline 50 mg capsule 50 mg PO HS 03/13/20 03/13/20 History clonazepam 0.5 mg tablet 0.5 mg PO DAILY 02/23/23 02/23/23 History Allergies Allergy/AdvReac Type Severity Reaction Status Date / Time No Known Allergies Allergy Mild Verified 02/23/23 14:03 Vital Signs Vital Signs - 24 hr 01/29/24 08:17 01/29/24 08:21 01/29/24 08:31 Temperature 36.4 C Pulse Rate 77 83 80 Respiratory Rate 16 13 23 H Blood Pressure 118/77 118/77 110/89 Pulse Oximetry 99 98 99 Oxygen Delivery Room Air 01/29/24 09:15 01/29/24 09:31 01/29/24 11:01 Temperature Pulse Rate 74 72 74 Respiratory Rate 17 15 14 Blood Pressure 114/74 110/64 122/77 Pulse Oximetry 99 97 99 Oxygen Delivery 01/29/24 12:01 01/29/24 13:16 Temperature Pulse Rate 72 74 Respiratory Rate 14 13 Blood Pressure 114/79 102/63 Pulse Oximetry 97 99 Oxygen Delivery Exam Const: General: cooperative, comfortable, no acute distress and obese HENMT: Head: normal to inspection, normocephalic and atraumatic Eyes: General: appearance normal, both eyes and all related structures Neck: Neck: normal visual inspection, full ROM and no lymphadenopathy Resp: Auscultation: clear to auscultation bilaterally Cardio: Rate: regular rate Rhythm: regular rhythm GI: Inspection: normal to inspection and non-distended GI Palp: Yes abdominal tenderness, Yes Soft to palpation, Yes Tenderness to palpation present (GI), No Guarding due to palpation present (GI) and No Rigid due to palpation Skin: General skin exam: normal color and no rashes or lesions noted Neuro: General: patient oriented x3 and CN's II-XI intact bilaterally Extrem: General: normal to inspection and full ROM Results Labs 01/29/24 08:28 01/29/24 08:28 Labs:
--- NOTE | 2024-01-29 13:55 | PM.IMHP ---
H&P: HPI History of Present Illness Date/Time: 01/29/24 14:00 Chief Complaint: Abdominal pain. Narrative: This is a pleasant 33-year-old female with history of cholelithiasis, anxiety, depression, and migraines who presented to the emergency department for evaluation of abdominal pain. The patient provides following history. She does a liver and gallbladder cleanse each month to help with recurrent gallbladder attacks which tend to occur monthly, lasting upwards of one week at a time. The last 48 hours she has once again developed pain in the right upper quadrant which radiates through to the back and right scapula. It is colicky in nature and is similar to but much more intense than her usual gallbladder attacks. The pain is worse with eating and drinking and she gives no significant alleviating factors. Associated symptoms include nausea. She denies fever, chills, sweats, chest pain, shortness of breath, and vomiting. In the ED: She was afebrile on arrival with stable vital signs. Labs were significant for WBC count 10.1, total bilirubin 2.5, AST 332, ALT 248, alkaline phosphatase 134, lipase 339. UA was positive for 1+ bilirubin, 1+ leukocyte esterase, 21 to 50 WBC, 1+ bacteria, and moderate squamous cells. Right upper quadrant ultrasound showed cholelithiasis and fatty infiltration of the liver; no gallbladder wall thickening or pericholecystic fluid was noted and common bile duct measured 4 mm. She was given ondansetron and morphine for her symptoms and she was started on ceftriaxone and metronidazole for possible cholecystitis and she is being admitted in this setting for further treatment and evaluation. Review of Systems Review of Systems: 12 systems were reviewed and are negative except for as per HPI. [facility] Past Medical History Medical History Cholelithiasis Depression with anxiety Gestational diabetes Migraine headache Nausea RUQ pain Surgical History Surgical History History of section Family History Family History Other Family history non-contributory Social History Social History Social History: Surrogate medical decision maker: Rodger Bryant, spouse. Code status: Full code. Smoking status: Former smoker Alcohol intake: never Substance use: former Substance use type: does not use Do You Feel Safe in your Home?: Yes Lack of Transportation: No Lack of Food: Never True Current Housing: I Have Housing Concerned About Future Housing: No Difficulty Paying Gas/Electric Bills: No Difficulty Paying for Meds: No Currently Unemployed: No Education: Associate Degree Difficulty w/ Childcare or Family Care: No Spiritual care concerns: No Meds Home Medications and Allergies Home Medications Medication Instructions Recorded Confirmed Type nortriptyline 50 mg capsule 50 mg PO HS 03/13/20 01/29/24 History clonazepam 0.5 mg tablet 0.5 mg PO DAILY PRN Anxiety 02/23/23 01/29/24 History Allergies Allergy/AdvReac Type Severity Reaction Status Date / Time No Known Allergies Allergy Mild Verified 02/23/23 14:03 Vital Signs Vital Signs - 24 hr 01/29/24 08:17 01/29/24 08:21 01/29/24 08:31 Temperature 97.6 F Pulse Rate 77 83 80 Respiratory Rate 16 13 23 H Blood Pressure 118/77 118/77 110/89 Pulse Oximetry 99 98 99 Oxygen Delivery Room Air 01/29/24 09:15 01/29/24 09:31 01/29/24 11:01 Temperature Pulse Rate 74 72 74 Respiratory Rate 17 15 14 Blood Pressure 114/74 110/64 122/77 Pulse Oximetry 99 97 99 Oxygen Delivery 01/29/24 12:01 01/29/24 13:16 Temperature Pulse Rate 72 74 Respiratory Rate 14 13 Blood Pressure 114/79 102/63 Pulse Oximetry 97 99 Oxygen Delivery Exam Narrative: General: N
--- NOTE | 2024-01-29 14:01 | ADMGEN ---
This patient, Elizabeth Hurtado, was admitted to [facility] Surg Room 302-01. Patient/family oriented to hospital policies and general routines including ID bracelet, bed and alarms, visiting hours, pain management, procedures, bathroom and other care routines, personal items, smoking policy, room service/diet, and visiting hours. Information on how to activate the Rapid Response Team has been discussed. Patient/Family are encouraged to report perceived risks to care and to ask questions if they do not understand what they are told or what they should do.
--- NOTE | 2024-01-29 14:07 | ECG_ITS ---
[facility] [address] Test Date: 2024-01-29 Pat Name: Elizabeth Hurtado Department: Room: 302 Gender: F Training And Development Coordinator: : 1990 Requested By: Lilian Ugarte Order Number: [id number] Brody MD: Ranjit Larios M.D. Measurements Intervals Zap Rate: 56 P: 20 [place]: 162 QRS: 17 QRSD: 96 T: -1 QT: 432 QTc: 419 Interpretive Statements SINUS BRADYCARDIA WITH SINUS ARRHYTHMIA OTHERWISE NORMAL ELECTROCARDIOGRAM No previous ECG available for comparison Electronically Signed On 01-30-2024 08:02:31 CDT by Ranjit Larios M.D.
--- NOTE | 2024-01-29 14:34 | WPDGICN ---
Assessment and Plan Assessment and plan (1) Cholelithiasis: Code(s): K80.20 - Calculus of gallbladder without cholecystitis without obstruction Status: Acute Assessment and Plan: here with recurrent biliary colic and cholelithiasis will need to get MRCP to assess if bile duct stone, if she has any then will need ercp otherwise only lap nickie- surgery already on board (2) Elevated LFTs: Code(s): R79.89 - Other specified abnormal findings of blood chemistry Status: Acute Assessment and Plan: trend liver enzymes pending mrcp (3) RUQ pain: Code(s): R10.11 - Right upper quadrant pain Status: Acute (4) Nausea: Code(s): R11.0 - Nausea Status: Acute GI Consult Note Consult date/time: 01/29/24 14:34 Reason for consult: ruq pain, elevated liver enzymes HPI: Elizabeth Hurtado is a 33 year old female with known history of GB issues for last 2 years, she has been dealing with recurrent upper abdominal pain attributed to her gallbladder in fact she was admitted to hospital last year when she also had pancreatitis and denies alcohol use, she was supposed to follow-up with surgery to set up cholecystectomy, only surgery is . This time with 2 days of worsening pain at severe epigastric and right upper quadrant abdominal pain that got severe and did not go away, also associated anorexia, nausea, bloating. bili 2.5 and elevated liver enzymes, ultrasound showed fatty liver and cholelithiasis. Review of Systems Constitutional: Constitutional: Denies headache(s) and Denies weakness Eyes: Eyes: Denies blurry vision ENT: Reports Normal hearing present, Denies headache(s) and Denies neck pain Cardiovascular: Cardiovascular: Denies chest pain and Denies dyspnea Respiratory: Respiratory: Denies dyspnea Gastrointestinal: Gastrointestinal: Reports no additional gastrointestinal complaints Genitourinary: Genitourinary: Denies dysuria Musculoskeletal: Musculoskeletal: Denies neck pain Integumentary/Breasts: Skin/Breast: Denies dry skin Neurologic: Reports Normal hearing present, Denies headache(s) and Denies weakness Psychiatric: Psychiatric: Denies anxiety Endocrine: Endocrine: Denies change in body appearance Hematologic/Lymphatic: Hematologic/Lymphatic: Denies easy bleeding Allergic/Immunologic: Allergic/Immunologic: Denies urticaria PMFSH Past Medical History Medical History (Updated 01/29/24 @ 14:38 by Adis Bautista MD) Cholelithiasis Depression with anxiety Gestational diabetes Migraine headache Nausea RUQ pain Surgical History Surgical History (Updated 01/29/24 @ 13:58 by Lilian Rodgers PA-C) History of section Family History Family History (Updated 01/29/24 @ 13:58 by Lilian Rodgers PA-C) Other Family history non-contributory Social History Social History (Updated 01/29/24 @ 13:58 by Lilian Rodgers PA-C) Social History: Surrogate medical decision maker: Rodger Hurtado, spouse. Code status: Full code. Smoking status: Former smoker Alcohol intake: never Substance use: former Substance use type: does not use Do You Feel Safe in your Home?: Yes Lack of Transportation: No Lack of Food: Never True Current Housing: I Have Housing Concerned About Future Housing: No Difficulty Paying Gas/Electric Bills: No Difficulty Paying for Meds: No Currently Unemployed: No Education: Associate Degree Difficulty w/ Childcare or Family Care: No Spiritual care concerns: No Meds Home Medications and Allergies Home Medications Medication Instructions Recorded Confirmed Type nortriptyline 50 mg capsule 50 mg PO HS 03/13/20 01/29/24 History clonazepam 0.5 mg tablet 0.5 mg PO DAILY PRN Anxiety 02/23/23 01/29/24 History Allergies Allergy/AdvReac Type Severity Reaction Status Date / Time No Known Allergies Allergy Mild Verified 02/23/23 14:03 Vital Signs Vital Si
[2024-01-29] MEDS: NORTRIPTYLINE HCL 25 MG CAPSULE 50 MG PO (18:30)
[2024-01-29] MEDS: clonazePAM (*CRX) 0.5 MG TABLET PO (18:30)
[2024-01-30] MEDS: metroNIDAZOLE 500 MG/ISO 100ML 500 MG/100 ML BAG 100 MG IVPB (05:00)
[2024-01-30 06:00] VITALS: BP 100/53; PULSE 76; RESP 16; TEMP 36.3; O2SAT 98
[2024-01-30 06:25] LABS: Hematocrit 35.1 % (37.0-47.0); Hemoglobin 11.3 g/dL (12.0-15.0); Mean Corpuscular HGB Conc 32.2 g/dl (32-36); Mean Corpuscular Hemoglobin 27.6 pg (26-34); Mean Corpuscular Volume 85.8 fl (80-100); Mean Platelet Volume 11.5 fl (7.4-10.4); Platelet Count Result 229 k/mm3 (150-375); Red Blood Count 4.09 M/mm3 (4.2-5.4); Red Cell Distribution Width 12.9 % (11.5-14.5); White Blood Count 8.8 K/mm3 (4.5-10.0)
[2024-01-30 06:28] LABS: Alanine Aminotransferase 164 U/L (6-35); Albumin Level 3.5 g/dL (3.5-5.1); Alkaline Phosphatase 112 U/L (38-126); Anion Gap 4 mmol/L (4-12); Aspartate Amino Transferase 90 U/L (14-36); Blood Urea Nitrogen 5 mg/dL (7-17); Calcium 7.8 mg/dL (8.4-10.2); Carbon Dioxide 21 mmol/L (22-30); Chloride 112 mmol/L (98-107); Estimated CRCL calculation 120 ml/min; Estimated Glomerular Filt Rate > 60; Glucose 96 mg/dL (65-110); Potassium 3.6 mmol/L (3.4-5.0); Sodium 137 mmol/L (137-145)
[2024-01-30] MEDS: SODIUM CHLORIDE 0.9% IV 1,000 ML 125 ML IV CONT (07:30)
[2024-01-30 08:00] VITALS: PULSE 76; RESP 16; O2SAT 98
--- NOTE | 2024-01-30 10:03 | WPDHPUPDATE1 ---
History and Physical Update Update Date/Time: 01/30/24 10:03 History and Physical has been reviewed, including an updated exam of the patient. There are NO changes in the patient's condition. Risks, benefits, and alternatives have been discussed and questions answered. Patient agrees to proceed with procedure. labs normalized and exam benign, will proceed c laparoscopic cholecystectomy
--- NOTE | 2024-01-30 10:53 | PM.DS ---
DS: Summary Time Spent with Patient Time attestation: Total time spent providing and/or coordinating discharge services: DS: Data Data Completed and Pending Labs on day of discharge: Labs from last 24 hours 01/30/24 05:50 WBC 8.8 RBC 4.09 L Hgb 11.3 L Hct 35.1 L MCV 85.8 MCH 27.6 MCHC 32.2 RDW 12.9 Plt Count 229 MPV 11.5 H Sodium 137 Potassium 3.6 Chloride 112 H Carbon Dioxide 21 L Anion Gap 4 BUN 5 L Creatinine 0.60 L Estim Creat Clear Calc 120 Estimated GFR > 60 Glucose 96 Calcium 7.8 L Magnesium 2.0 Total Bilirubin 1.0 AST 90 H ALT 164 H Alkaline Phosphatase 112 Total Protein 6.0 L Albumin 3.5 Discharge Plan Discharge Consulting providers: Harini Han; Adis Bautista Discharge Medications: No Action nortriptyline 50 mg capsule 50 mg PO HS clonazepam 0.5 mg tablet 0.5 mg PO DAILY PRN (Reason: Anxiety) Date of admission: 01/29/24 11:48 Primary Care Provider: Wilver Pagan Admitting Provider: Setph Varner Attending physician on admission: Steph Varner Condition: Stable
[2024-01-30 11:40] VITALS: BP 119/71; PULSE 74; RESP 16; TEMP 36.7; O2SAT 100
--- NOTE | 2024-01-30 13:01 | WPDANESEPPF ---
Anes - Initial Pre Proc Eval Procedure: Operation Date: 01/30/24 13:00 Proposed Procedures p Laparoscopic Cholecystectomy - Harini Han MD Date/Time: 01/30/24 13:01 Surgeon: Steph Varner MD Pre Op Diagnosis: Cholecystitis Patient Data Age: 33 Gender: F Height: 1.6 m Weight: 91.1 kg Last Vital Signs Temp 98.0 F 01/30/24 11:40 Pulse 74 01/30/24 11:40 Resp 16 01/30/24 11:40 BP 119/71 01/30/24 11:40 Pulse Ox 100 01/30/24 11:40 O2 Del Method Room Air 01/30/24 11:40 Allergies Allergy/AdvReac Type Severity Reaction Status Date / Time No Known Allergies Allergy Mild Verified 02/23/23 14:03 Home Medications Medication Instructions Recorded Confirmed Type nortriptyline 50 mg capsule 50 mg PO HS 03/13/20 01/29/24 History clonazepam 0.5 mg tablet 0.5 mg PO DAILY PRN Anxiety 02/23/23 01/29/24 History Laboratory Tests 01/30/24 05:50 WBC 8.8 K/mm3 (4.5-10.0) RBC 4.09 L M/mm3 (4.2-5.4) Hgb 11.3 L g/dL (12.0-15.0) Hct 35.1 L % (37.0-47.0) MCV 85.8 fl (80-100) MCH 27.6 pg (26-34) MCHC 32.2 g/dl (32-36) RDW 12.9 % (11.5-14.5) Plt Count 229 k/mm3 (150-375) MPV 11.5 H fl (7.4-10.4) Sodium 137 mmol/L (137-145) Potassium 3.6 mmol/L (3.4-5.0) Chloride 112 H mmol/L (98-107) Carbon Dioxide 21 L mmol/L (22-30) Anion Gap 4 mmol/L (4-12) BUN 5 L mg/dL (7-17) Creatinine 0.60 L mg/dL (0.7-1.0) Estim Creat Clear Calc 120 ml/min Estimated GFR > 60 (59 - ) Glucose 96 mg/dL (65-110) Calcium 7.8 L mg/dL (8.4-10.2) Magnesium 2.0 mg/dL (1.6-2.3) Total Bilirubin 1.0 mg/dL (0.2-1.3) AST 90 H U/L (14-36) ALT 164 H U/L (6-35) Alkaline Phosphatase 112 U/L (38-126) Total Protein 6.0 L g/dL (6.3-8.2) Albumin 3.5 g/dL (3.5-5.1) Patient hx anesthesia problems: none Family hx anesthesia problems: none Results Review: All pre-operative results and documents have been reviewed as part of the pre-operative evaluation. [facility] Past Medical History Medical History Cholelithiasis Depression with anxiety Gestational diabetes Migraine headache Nausea RUQ pain Surgical History Surgical History History of section Family History Family History Other Family history non-contributory Social History Social History Social History: Surrogate medical decision maker: Rodger Huratdo, spouse. Code status: Full code. Smoking status: Former smoker Alcohol intake: never Substance use: former Substance use type: does not use Do You Feel Safe in your Home?: Yes Lack of Transportation: No Lack of Food: Never True Current Housing: I Have Housing Concerned About Future Housing: No Difficulty Paying Gas/Electric Bills: No Difficulty Paying for Meds: No Currently Unemployed: No Education: Associate Degree Difficulty w/ Childcare or Family Care: No Spiritual care concerns: No Anes - Eval Final PreProcedure Day of Procedure 01/30/24 13:01 Patient weight: obese Heart: regular rate and rhythm Lungs: clear to auscultation Airway: Mallampati scale class II Neurological: alert and oriented Last oral intake: >/= 8 hours ASA classification: III Emergent: no Anesthetic plan: proceed Anesthesia type and monitoring: general ETT and standard monitoring Results Review: All pre-operative results and documents have been reviewed as part of the pre-operative evaluation. Informed Consent: The patient's anesthetic plan and its attendant risks and benefits were discussed with the patient/family/POA. Questions were solicited and answers provided to the satisfaction of the patien
--- NOTE | 2024-01-30 14:00 | PC.NURSE ---
Addendum entered by Daysi Murillo RN 01/30/24 16:30: Error in timing. Call received at 1600. Original Note: Patient's mother called with questions regarding [facility]'s address and phone number. Information given. Mother notified that patient has belongings and will be locked up until ready for grape picker. Mother will call when ready to grape picker.
[2024-01-30 14:42] LABS: Alveolar/Arterial O2 Gradient 284.9 mmHg; Base Excess ABG -15.8 mEq/l (+/-2.0); Fractional Inspired Oxygen 100 %; HCO3 ABG 14.1 mEq/l (22.0-26.0); Oxygen Content ABG 18.4 %vol (16.0-22.0); Oxygen Saturation ABG 99.6 % (95.0-100.0); PO2 ABG 378.1 mmHg (80.0-100.0); PO2 FiO2 Ratio Arterial Blood 3.78 %; Total Hemoglobin 12.5 g/dL (12.0-18.0)
[2024-01-30 14:46] LABS: pH ABG 7.069 (7.350-7.450)
--- NOTE | 2024-01-30 14:46 | PM.IMPN ---
Progress Note: A&P Assessment and Plan (1) Cholecystitis: Code(s): K81.9 - Cholecystitis, unspecified Status: Acute (2) Cholelithiasis: Code(s): K80.20 - Calculus of gallbladder without cholecystitis without obstruction Status: Acute (3) Elevated LFTs: Code(s): R79.89 - Other specified abnormal findings of blood chemistry Status: Acute Assessment and Plan: Down trending since admission (4) Depression with anxiety: Code(s): F41.8 - Other specified anxiety disorders Status: Acute Assessment and Plan: On clonazepam and nortriptyline at night, okay to continue Plan Patient with recurrent right upper quadrant pains and cholelithiasis with elevated liver enzymes thought to possible choledocholithiasis. MRCP was ordered. Patient evaluated by surgery decided to cancel MRCP and perform cholecystectomy due to recurring problems. Time Spent With Patient Time with patient: 25 - 35 minutes Subjective Date/time seen: 01/30/24 10:46 Interval history: 33-year-old female with recurrent gallbladder problems presented to the emergency department with pain yesterday was to undergo MRCP today. Decision was made to forego MRCP cholecystectomy. Patient evaluated before surgery stated that she is feeling fine and did not need anything. Patient reports she has a history migraine headaches and panic attacks was feeling fine at the time my exam. Review of Systems Review of Systems: 12 systems were reviewed and are negative except for as per HPI. All systems reviewed & are unremarkable except as noted in HPI and below Exam Narrative: General: Nontoxic-appearing female in the semi-Trevino position in bed. HEENT: PERRL, EOMI. Sclera anicteric. Tacky mucous membranes. Neck: Supple. Respiratory: Lungs are clear to auscultation bilaterally. Cardiovascular: Regular rate and rhythm with S1-S2. Gastrointestinal: Abdomen is soft and nondistended with positive bowel sounds. She has tenderness to palpation in the right upper quadrant. Negative Jackson sign. No guarding or rebound tenderness. Skin: Warm and dry. No rash or lesions on limited exam. Extremities: No cyanosis, clubbing, or edema. Radial and pedal pulses intact. Neurological: Alert. Cranial nerves 2-12 are grossly intact. No gross focal deficits to casual conversation. Psychiatric: Flat affect. Judgment and insight intact. Objective Data Vital Signs Vital Signs: Vital Signs - 24 hr 01/29/24 15:15 01/29/24 21:05 01/29/24 20:00 Temperature 36.6 C Pulse Rate 78 Respiratory Rate 18 Blood Pressure 113/65 Pulse Oximetry 99 99 Oxygen Delivery Room Air Room Air 01/30/24 06:00 01/30/24 08:00 01/30/24 11:40 Temperature 36.3 C L 36.7 C Pulse Rate 76 76 74 Respiratory Rate 16 16 16 Blood Pressure 100/53 L 119/71 Pulse Oximetry 98 98 100 Oxygen Delivery Room Air Room Air Intake/Output Intake/Output: Intake & Output 01/27/24 01/28/24 01/29/24 01/30/24 23:59 23:59 23:59 23:59 Intake Total 1508 2600 Balance 1508 2600 Meds/Results Medications: Active Medications Generic Name Dose Route Start Last Admin Trade Name Freq PRN Reason Stop Dose Admin Acetaminophen 650 mg 01/29/24 14:51 Acetaminophen 325 Mg Tablet PO Q4H PRN Headache Hydrocodone Bitart/Acetaminophen 1 tab 01/29/24 14:50 Hydrocodone/Acetaminophen (*Crx) 5-325 Mg Tablet PO Q4H PRN Pain Rated 4-6 Clonazepam 0.5 mg 01/29/24 14:09 01/29/24 18:30 Clonazepam (*Crx) 0.5 Mg Tablet PO 0.5 mg DAILY PRN Administration Anxiety Fentanyl Citrate 25 mcg 01/30/24 13:02 Fentanyl Citrate Inj (*Crx) 100 Mcg/2 Ml Vial IV PUSH Q2M PRN Pain Ceftriaxone Sodium 1 gm in 50 mls @ 100 mls/hr 01/30/24 09:00 01/30/24 08:55 Rocephin 1 Gm/Ns 50 Ml IVPB 100 mls/hr Q24H LAURYN Administration Metronidazole 500 mg in 100 mls @ 100 mls/hr 01/29/24 22:00 01/30/24 06:00
[2024-01-30 14:47] LABS: Device IN OR/PER ANESTHESIA
[2024-01-30 14:53] LABS: Hemoglobin 11.3 g/dL (12.0-15.0); Mean Corpuscular HGB Conc 31.4 g/dl (32-36); Mean Corpuscular Hemoglobin 28.3 pg (26-34); Mean Corpuscular Volume 90.2 fl (80-100); Mean Platelet Volume 11.8 fl (7.4-10.4); Platelet Count Result 207 k/mm3 (150-375); Red Blood Count 3.99 M/mm3 (4.2-5.4); Red Cell Distribution Width 13.8 % (11.5-14.5); White Blood Count 15.7 K/mm3 (4.5-10.0)
[2024-01-30 15:10] LABS: Anion Gap 6 mmol/L (4-12); Blood Urea Nitrogen 4 mg/dL (7-17); Calcium 5.7 mg/dL (8.4-10.2); Carbon Dioxide 14 mmol/L (22-30); Chloride 114 mmol/L (98-107); Estimated CRCL calculation 142 ml/min; Estimated Glomerular Filt Rate > 60; Glucose 270 mg/dL (65-110); Potassium 5.2 mmol/L (3.4-5.0); Sodium 134 mmol/L (137-145)
--- NOTE | 2024-01-30 15:11 | SUR.OPER ---
Critical Lab of Calcium [address] Maria and Lizette Briceño, BAND SCROLL SAW OPERATOR at [phone]
[2024-01-30 15:29] LABS: INR 1.7; Prothrombin Time 20.3 Seconds (11.1-14.7)
[2024-01-30 15:30] LABS: Partial Thromboplastin Time 33.4 Seconds (22.3-36.8)
[2024-01-30 15:31] LABS: Fibrinogen 151 mg/dl (215-510)
[2024-01-30 15:32] LABS: Band Neutrophils Percent 3 % (0-6); Eosinophils Absolute Manual 0.31 K/mm3 (0.02-0.50); Eosinophils Percent Manual 2 % (0-4); Lymphocytes Absolute Manual 6.59 K/mm3 (1.1-4.5); Monocytes Absolute Manual 0.94 K/mm3 (0.1-0.90); Monocytes Percent Manual 6 % (3-9); Neutrophils Absolute Manual 7.85 K/mm3 (1.7-7.2); Neutrophils Percent Manual 47 % (46-73); Total Cells Counted 100
[2024-01-30 15:35] LABS: Platelet Estimate Adequate (Adequate); Schistocytes None Seen
[2024-01-30 15:45] LABS: Base Excess ABG -5.9 mEq/l (+/-2.0); Device IN OR/PER ANESTHESIA; Fractional Inspired Oxygen 100 %; Oxygen Content ABG 13.4 %vol (16.0-22.0); Oxygen Saturation ABG 99.8 % (95.0-100.0); PCO2 ABG 40.9 mmHg (35.0-45.0); PO2 ABG 424.1 mmHg (80.0-100.0); PO2 FiO2 Ratio Arterial Blood 4.24 %; Total Hemoglobin 8.8 g/dL (12.0-18.0); pH ABG 7.307 (7.350-7.450)
[2024-01-30 15:49] LABS: D Dimer 4.88 ug/mL (<0.48)
--- NOTE | 2024-01-30 15:53 | SUR.OPER ---
Air Evac Life Team arrived at 1538. Report given to Christina Holliday RN by Lizette Briceño CRNA. Air evac Life team left OR with patient at 1553
--- NOTE | 2024-01-30 16:01 | WPDANESACPN ---
Arterial Cath Proc Note Consent: I have discussed with the patient/family/POA, the non-emergent placement of an arterial catheter, including its clinical necessity/indication and associated potential risks and complications. The patient/family/POA and/or understand(s) and acknowledge(s) the need to proceed with the arterial catheter insertion as an important element of the patient's clinical management. Given emergent patient conditions, temporal constraints may have precluded informed consent. Time-Out: A pre-procedural Time-Out was completed immediately before starting the procedure and confirmed: Patient Identification, Site, Procedure, Patient Position and the Availability of Requisite Equipment. I was called emergently for assistance w a critically ill pt in OR 5 in the setting of sudden and large blood loss. Pt markedly volume depleted and unable to obtain arterial access in radial location. R brachial arterial line placed as procedure note. Procedure Note Patient position: supine Insertion site: right brachial Method of insertion: ultrasound-guided Per Assessment Nurse prep: sterile gloves, mask and hat Site prep: chlorahexadine Skin anesthesia: general anesthesia Gauge: 20 gauge Closure/Dressing: tegaderm Complications: None immediately noted/suspected.
--- NOTE | 2024-01-30 16:02 | W.PM.PROC2 ---
Procedure Note - Detailed Date of Procedure 01/30/24 Pre-op Diagnosis Cholecystitis Post-op Diagnosis Other (iatrogenic bleeding) Procedure Performed laparoscopy converted to exploratory laparotomy, control of retroperitoneal bleeding, placement of ABThera wound VAC Surgeon Harini Han MD Casting And Pasting Supervisor Crow Anesthesia General Indications 33-year-old female presenting for right upper quadrant abdominal pain. Workup, including imaging, significant for cholecystitis, cholelithiasis. Findings iatrogenic bleeding from 5 mm infraumbilical port site Description of Procedure The patient was taken to the operating room and placed in the supine position. After adequate induction of general anesthesia, the patient was prepped and draped in the normal sterile fashion. A time-out was then done to verify the patient's identity, as well as the procedure performed. I began by making a 5 mm incision in the infraumbilical region, through this a Veress needle was placed in the peritoneal cavity. CO2 gas was then insufflated through the Veress needle. After adequate pneumoperitoneum was achieved, the Veress needle was removed. A 5 mm Optiview trocar site was then placed. Upon removing the obturator, there was noted to be some bright red blood. I placed the laparoscope through the trocar and there was noted to be a small amount of hemoperitoneum. Under direct visualization, I placed a further 12 mm subxiphoid port as well as 2 further 5 mm ports in the right abdomen. It was at this point anesthesia informed me that the patient had a poor end-tidal CO2 and was becoming very pale. The patient was becoming more tachycardic and we were unable to obtain a blood pressure. The abdomen was desufflated and this did not improve her condition. Given her worsening vital signs, the decision was made to convert to an open laparotomy. Upon entering the abdomen, there was a moderate amount of hemoperitoneum. I immediately began packing the abdomen, especially around the infraumbilical trocar site. I then asked for backup and my partner Dr. Maria graciously came to assist. We were able to slowly unpacked the abdomen and there was noted to be a small rent in the retroperitoneum. There was also a moderate sized retroperitoneal hematoma. At this point I was able to put a finger in this area to control any further bleeding. We were able to examine the rest of the abdomen and no other bleeding sources were noted. We then slowly gained exposure to the area of bleeding in the retroperitoneum. At this point the bleeding had largely resolved and anesthesia was able to give blood products and stabilize the patient. We then put multiple pieces of Surgicel as well as Tisseel in this area. Again pressure was held and some very mild oozing would occasionally occur. We then were able to place a call out to [facility] where we were able to transfer the patient for further intervention including interventional radiology and vascular surgery. Once transfer was obtained and the helicopter was secured, the abdomen was packed with approximately 14 laparotomy sponges. No further obvious bleeding was noted. An ABThera wound VAC was placed. The patient will now be transferred to [facility] in critical condition via [facility]. Of note, the patient received 5 units of packed red blood cells and 4 units of FFP. Estimated Blood Loss 1,000 Packing Yes ( ABThera wound VAC, 14 laparotomy sponges) Pathology None sent Complications Other complications ( iatrogenic bleeding from trocar site) Condition Critical Disposition Other ( emergent transfer to [facility]) [facility] Billing Surgery - Charge Forward: Surgery Billing
--- NOTE | 2024-01-30 16:15 | P.PCNANE_ITS ---
Anes - Cent Venous Cath Note Consent: I have discussed with the patient/family/POA, the non-emergent placement of a central venous catheter, including its clinical necessity/indication and associated potential risks and complications. The patient/family/POA understand(s) and acknowledge(s) the need to proceed with central venous catheter insertion as an important element of the patient's clinical management given emergent patient conditions, temporal constraints may have precluded informed consent. Time-Out: A pre-procedural Time-Out was completed immediately before starting the procedure and confirmed: Patient Identification, Site, Procedure, Patient Position and the Availability of Requisite Equipment. I was called emergently for assistance w this critically ill patient in OR 5 in the setting of sudden and large blood loss, w associated hypotension and need for vasopressors. R IJ CVP placed under ultrasound guidance as in procedure note. Procedure Note Clinical Indications: Massive blood loss, hypotension, need for vasopressors. Patient position: trendelenburg Central venous catheter insertion site: right internal jugular CVC method of insertion: ultrasound-guided Hand hygiene/Aseptic technique: Hand hygiene procedures were performed. Aseptic technique was maintained th roughout the procedure. Sterile barrier precautions: Maximal sterile barrier precautions, including use of a cap, mask, sterile gown, sterile gloves and a sterile full body drape. Site prep: chlorhexidine Skin anesthesia: placed under general anesthesia Taiwanese: 7.5 Lumen: 3 Length (cm): 20 cm Closure/Dressing: suture, biopatch and tegaderm Complications: None immediately noted/suspected. Chest X Ray: CXR not completed in this emergency need for central access in OR. Pt was in need of emergent transfer by helicopter to [facility] for assessment by Interventional Radiology. Our transfer report to the flight nurses included this information. Procedure comments: R IJU CVP by US guidance and verified to be venous w pressure tubing prior to dilation of the vessel.
--- NOTE | 2024-01-30 16:15 | PC.NURSE ---
Patient's mother called to machine operator hop picker belongings. All patient belongings from room gathered and given to patient's mother.
--- NOTE | 2024-01-30 16:30 | PM.DS ---
DS: Admitting Diagnosis Discharge Date 01/30/2024 Admitting Diagnosis cholecystitis DS: Discharge Diagnosis Discharge Diagnosis (1) Cholecystitis: Code(s): K81.9 - Cholecystitis, unspecified Status: Acute DS: Summary Time Spent with Patient Time attestation: Total time spent providing and/or coordinating discharge services: DS: Data Data Completed and Pending Labs on day of discharge: Labs from last 24 hours 01/30/24 01/30/24 01/30/24 15:29 14:38 14:30 WBC 15.7 H RBC 3.99 L Hgb 11.3 L Hct 36.0 L MCV 90.2 D MCH 28.3 MCHC 31.4 L RDW 13.8 Plt Count 207 MPV 11.8 H Immature Gran % (Auto) Not Reportable Neut % (Auto) Not Reportable Lymph % (Auto) Not Reportable [place] % (Auto) Not Reportable Eos % (Auto) Not Reportable Baso % (Auto) Not Reportable Lymph # (Auto) Not Reportable [place] # (Auto) Not Reportable Eos # (Auto) Not Reportable Baso # (Auto) Not Reportable Abs Immat Gran (auto) Not Reportable Absolute Neuts (auto) Not Reportable Absolute Nucleated RBC Not Reportable Total Counted 100 Neutrophils % (Manual) 47 Band Neutrophils % 3 Lymphocytes % (Manual) 42.0 Monocytes % (Manual) 6 Eosinophils % (Manual) 2 Nucleated RBC % Not Reportable Abs Neuts (Manual) 7.85 H Abs Lymphs (Manual) 6.59 H Abs Monocytes (Manual) 0.94 H Absolute Eos (Manual) 0.31 Platelet Estimate Adequate Schistocytes None seen PT 20.3 H INR 1.7 APTT 33.4 Fibrinogen 151 L D-Dimer 4.88 H Puncture Site Not Reportable Not Reportable ABG pH 7.307 L 7.069 L* ABG pCO2 40.9 50.0 H ABG pO2 424.1 H 378.1 H ABG PO2/FiO2 Ratio 4.24 3.78 ABG HCO3 20.0 L 14.1 L ABG O2 Saturation 99.8 99.6 ABG O2 Content 13.4 L 18.4 ABG Base Excess -5.9 -15.8 A-a Gradient 248.0 284.9 Oxyhemoglobin 99.0 99.0 Total Hemoglobin 8.8 L 12.5 O2 Delivery Device In or/per anesthesia In or/per anesthesia O2 Liters/Min Not Reportable Not Reportable FiO2 100 100 Sodium 134 L Potassium 5.2 H Chloride 114 H Carbon Dioxide 14 L Anion Gap 6 BUN 4 L Creatinine 0.50 L Estim Creat Clear Calc 142 Estimated GFR > 60 Glucose 270 H Calcium 5.7 L* Magnesium Total Bilirubin AST ALT Alkaline Phosphatase Total Protein Albumin Blood Type Antibody Screen Crossmatch 01/30/24 01/30/24 05:50 05:46 WBC 8.8 RBC 4.09 L Hgb 11.3 L Hct 35.1 L MCV 85.8 MCH 27.6 MCHC 32.2 RDW 12.9 Plt Count 229 MPV 11.5 H Immature Gran % (Auto) Neut % (Auto) Lymph % (Auto) [place] % (Auto) Eos % (Auto) Baso % (Auto) Lymph # (Auto) [place] # (Auto) Eos # (Auto) Baso # (Auto) Abs Immat Gran (auto) Absolute Neuts (auto) Absolute Nucleated RBC Total Counted Neutrophils % (Manual) Band Neutrophils % Lymphocytes % (Manual) Monocytes % (Manual) Eosinophils % (Manual) Nucleated RBC % Abs Neuts (Manual) Abs Lymphs (Manual) Abs Monocytes (Manual) Absolute Eos (Manual) Platelet Estimate Schistocytes PT INR APTT Fibrinogen D-Dimer Puncture Site ABG pH ABG pCO2 ABG pO2 ABG PO2/FiO2 Ratio ABG HCO3 ABG O2 Saturation ABG O2 Content ABG Base Excess A-a Gradient Oxyhemoglobin Total Hemoglobin O2 Delivery Device O2 Liters/Min FiO2 Sodium 137 Potassium 3.6 Chloride 112 H Carbon Dioxide 21 L Anion Gap 4 BUN 5 L Creatinine 0.60 L Estim Creat Clear Calc 120 Estimated GFR > 60 Glucose 96 Calcium 7.8 L Magnesium 2.0 Total Bilirubin 1.0 AST 90 H ALT 164 H Alkaline Phosphatase 112 Total Protein 6.0 L Albumin 3.5 Blood Type A Positive Antibody Screen Negative Crossmatch See Detail Discharge Plan Discharge Consulting providers: Harini Han; Adis Bautista Discharging Cl
--- NOTE | 2024-01-30 16:31 | PM.TDS ---
Transfer Discharge Sum: Prov Provider Date of admission: 01/29/24 11:48 Primary care physician: Wilver Pagan MD Admitting clinician: Steph Varner MD Consults: 01/29/24 11:50 Consult to Physician Routine Comment: Consulting Provider: Harini Han Reason for consultation: cholecystitis Has provider been notified: Yes Consult to Physician Routine Comment: Consulting Provider: Adis Bautista Reason for consultation: Cholecystitis Has provider been notified: Yes Attending physician on discharge: Steph Varner Discharging clinician: Harini Han Anticipated date of transfer: 01/30/24 Receiving physician/facility: [facility] DS: Admitting Diagnosis Discharge Date 01/30/2024 Admitting Diagnosis cholecystitis, cholelithiasis DS: Discharge Diagnosis Discharge Diagnosis (1) Cholecystitis: Code(s): K81.9 - Cholecystitis, unspecified Status: Acute Assessment and Plan: severe iatrogenic bleeding during cholecystectomy necessitating transfer to tertiary care facility for further workup and care Transfer Discharge Sum: Med Medications Active and Home Medications: Home Medications nortriptyline 50 mg capsule 50 mg PO HS 03/13/20 [History Confirmed 01/29/24] clonazepam 0.5 mg tablet 0.5 mg PO DAILY PRN Anxiety 02/23/23 [History Confirmed 01/29/24] hydrocodone 5 mg-acetaminophen 325 mg tablet 1 tablet PO Q4H PRN severe pain (scale score 7-10) #20 tabs 01/30/24 [Rx] Active Medications Acetaminophen (Acetaminophen 325 Mg Tablet) 650 mg PO Q4H PRN PRN Reason: Headache Hydrocodone Bitart/Acetaminophen (Hydrocodone/Acetaminophen (*Crx) 5-325 Mg Tablet) 1 tab PO Q4H PRN PRN Reason: Pain Rated 4-6 Clonazepam (Clonazepam (*Crx) 0.5 Mg Tablet) 0.5 mg PO DAILY PRN PRN Reason: Anxiety Last Admin: 01/29/24 18:30 Dose: 0.5 mg Fentanyl Citrate (Fentanyl Citrate Inj (*Crx) 100 Mcg/2 Ml Vial) 25 mcg IV PUSH Q2M PRN PRN Reason: Pain Ceftriaxone Sodium (Rocephin 1 Gm/Ns 50 Ml) 1 gm in 50 mls @ 100 mls/hr IVPB Q24H [facility] Last Admin: 01/30/24 08:55 Dose: 100 mls/hr Metronidazole (Flagyl 500 Mg/Iso Soln 100 Ml) 500 mg in 100 mls @ 100 mls/hr IVPB Q8H [facility] Last Infusion: 01/30/24 06:00 Dose: Infused Sodium Chloride (Normal Saline Iv) 1,000 mls @ 100 mls/hr IV CONT .Q10H [facility] Last Admin: 01/30/24 07:30 Dose: 125 mls/hr Lactated Ringer's (Lr - Lactated Ringers Iv) 1,000 mls @ 30 mls/hr IV CONT .Q24H [facility] Lactated Ringer's (Lr - Lactated Ringers Iv) 1,000 mls @ 30 mls/hr IV CONT .Q24H [facility] Morphine Sulfate (Morphine Sulfate (*Crx) 2 Mg/Ml Inj) 1 mg IV PUSH Q4H PRN PRN Reason: Pain Rated 4-6 Morphine Sulfate (Morphine Sulfate (*Crx) 4 Mg/Ml Inj) 2 mg IV PUSH Q4H PRN PRN Reason: Pain Rated 7-10 Nortriptyline HCl (Nortriptyline Hcl 25 Mg Capsule) 50 mg PO HS [facility] Last Admin: 01/29/24 18:30 Dose: 50 mg Ondansetron HCl (Ondansetron Inj 4 Mg/2 Ml Vial) 4 mg IV PUSH Q4H PRN PRN Reason: Nausea Last Admin: 01/29/24 15:29 Dose: 4 mg Ondansetron HCl (Ondansetron Inj 4 Mg/2 Ml Vial) 4 mg IV PUSH ONCE PRN PRN Reason: Nausea Transfer Discharge Sum: Hosp Hospital Course Hospital course: Elizabeth Hurtado is a 33 year old female that pretty cholecystitis, cholelithiasis. She was taken to the operating room on 01/29 for cholecystectomy. During the procedure, the patient had severe iatrogenic bleeding from a trocar site. The procedure was converted to an exploratory laparotomy and control of bleeding was obtained at that time. She was given multiple blood products in the operating room. Given the severity of the bleeding, the decision was made to transfer the patient emergently via [facility] to [facility] for further intervention and treatment. Time Spent with Patient Time attestation: Total time spent providing and/or coordinating transfer services:30 minutes Exam Const: General: acute distress moderate and ill appearing Resp: Auscultation: clear to
== END 2024-01-30 15:15 | disposition short-term general hospital (02) | DRG 420 ==
LOC: ANHED 09:32 → ANH3MEDSUR 12:48
PROVIDERS: Physician Assistant; Surgery; Admitting Provider Family Medicine; Emergency Provider Emergency Medicine; PCP Family Medicine; Visit Provider Family Medicine
PROC: 0FT44ZZ Resection of Gallbladder, Percutaneous Endoscopic Approach (ICD-10-PCS; CPT 47562; principal; 2024-01-30 13:00)
DX: K80.10 Calculus of gallbladder with chronic cholecystitis without obstruction (principal); K66.1 Hemoperitoneum; K68.3 Retroperitoneal hematoma; K91.71 Accidental puncture and laceration of a digestive system organ or structure during a digestive system procedure; R79.89 Other specified abnormal findings of blood chemistry; F32.A Depression, unspecified; F41.9 Anxiety disorder, unspecified; Y65.8 Other specified misadventures during surgical and medical care
CPT/HCPCS: 36415; 36430; 36600; 76705; 80048; 80053; 81001; 81025; 82805; 83690; 83735; 85025; 85027; 85380; 85384; 85610; 85730; 86850; 86900; 86901; 86920; 86923; 87086; 93005; 96361; 96365; 96366; 96375; 96376; 99285; A9270; G0378; J0696; J1100; J1170; J1836; J2250; J2270; J2371; J2405; J2704; J3010; J7030; P9016; P9017